=== PATIENT | female | born 1965 | race Caucasian/White ===

== ENCOUNTER 2017-07-24 11:38 | Emergency (ER) | payer MEDICARE, SELFPAY ==
[2017-07-24 11:39] VITALS: BP 133/88; PULSE 95; RESP 24; TEMP 36.1; O2SAT 96; BMI 40.0
--- NOTE | 2017-07-24 12:00 | ED.DCSUM_ITS ---
- ER Visit Summary Date of Service: 07/24/17 Chief Complaint: [Left leg pain] History of Present Illness: The patient is a 51 F [presents to the emergency department with pain in her left lower back, buttock, and left leg. Patient describes pain radiating from lower back down the back of the leg to the foot. Patient describes some paresthesias to the anterior thigh. Patient states that she has had similar pain multiple times in the past and has seen Dr. Kiran Her for this. Patient has had injections for this with prednisone. Patient denies any trauma. States she woke up with the discomfort. Patient denies weakness in the leg or change in bowel or bladder function.] Physical Examination: [HEENT-PERRLA, EOMI. Cranial nerves II through XII grossly intact. TMs clear. Mucous membranes moist. No adenopathy. Cardiovascular-regular rate and rhythm without murmur or ectopy Lungs-clear to auscultation, chest wall stable without crepitus or subcu emphysema Abdomen-normoactive bowel sounds, soft, nontender, no rebound or rigidity, no peritoneal signs. Back exam-patient has some mild tenderness over the left lower lumbar spine and left buttock specifically over the piriformis. Patient has pain with straight leg raising about 30? while lying supine. Deep tendon reflexes are plus 2 out of 4 bilaterally at the patella and Achilles. Patient has normal L5 extension. Patient has normal sensation to light touch. Extremities-intact ?4, normal range of motion, normal pulses, atraumatic] Test Results: [None indicated]. At this point there is no evidence of cauda equina. And without any evidence of trauma or history of trauma I do not feel any type of imaging is indicated. Emergency Department Course and Treatment: [Patient was medicated with 1 mg of Dilaudid IM as well as prednisone 40 g p.o.] Treatment Plan: [Be given a prescription for [place] and prednisone as well as Flexeril.] Disposition: [Discharged to home in stable condition. Patient advised to follow -up Dr. Her within next 5-7 days. Patient to return if worsening pain, weakness in extremity, change in bowel or bladder function, or condition should worsen in any way.] Impression: [Sciatica] This note was generated with [employer] software. It may contain incorrect words, spelling, and punctuation that were not noted in review of the chart prior to signing ED Disposition - Plan for ED Patient: Chief Complaint: Lower Extremity Injury Referrals: Brooklyn Ramsey DO [Primary Care Provider] -
--- NOTE | 2017-07-24 12:00 | ED.DEP ---
ED Disposition - Plan for ED Patient: Chief Complaint: Lower Extremity Injury Instructions: ED Sciatica Prescriptions: Hydrocodone Bitart/Apap 5-325 [[place] 5/325] 1 - 2 tab PO Q4H PRN PRN #20 tab PRN Reason: Pain Prednisone [Deltasone] 20 mg PO BID #10 tab Cyclobenzaprine [Flexeril] 10 mg PO TID PRN #20 tab PRN Reason: Muscle Spasm Referrals: Brooklyn Ramsey DO [Primary Care Provider] - 5-7 Days Kiran Her MD [STAFF PHYSICIAN] - 5-7 Days
[2017-07-24] MEDS: HYDROmorphone 1 MG/ML Syringe IM (12:09)
[2017-07-24 12:29] VITALS: BP 124/79; PULSE 85; RESP 17; O2SAT 94
== END 2017-07-24 12:29 | disposition home or self-care (01) ==
PROVIDERS: Emergency Provider Emergency Medicine
DX: M54.32 Sciatica, left side (principal); E11.9 Type 2 diabetes mellitus without complications; E78.00 Pure hypercholesterolemia, unspecified; J44.9 Chronic obstructive pulmonary disease, unspecified; Z72.0 Tobacco use
CPT/HCPCS: 96372; 99283

== ENCOUNTER 2018-04-17 01:17 | Observation (INO) | payer MEDICARE, SELFPAY ==
[2018-04-17] VITALS (16 sets, daily range): BP systolic 104–131; BP diastolic 59–91; PULSE 91–115; RESP 12–26; TEMP 36.3–37; O2SAT 91–97; BMI 40.8; BMI 40.7
[2018-04-17 01:00] LABS: Absolute Neutrophil Count 5.1 X10^3/uL (2.0-7.7); Differential Indicated SCAN CRITERIA MET; Hematocrit 43.4 % (37-47); Hemoglobin 14.5 g/dl (12.0-15.0); Mean Corp Hgb Conc 33.4 g/gl (32-36); Mean Corpuscular Hgb 32.4 pg (27.0-32.0); Mean Corpuscular Volume 97.1 fL (81-99); Neutrophil % 45.3 % (47-70); Platelet Count 274 K/mm3 (150-450); RBC Distribution Width CV 12.9 % (11.6-14.6); Red Blood Count 4.47 M/mm3 (4.2-5.4); White Blood Count 11.3 K/mm3 (4.4-11.0)
[2018-04-17] MEDS: Albuterol 2.5 MG/3 ML VIAL.NEB. INHALATION ×3 (01:10→01:30)
[2018-04-17 01:13] LABS: Anion Gap 7 (5-15); BUN 7 mg/dL (7-18); BUN/Creat Ratio 9.5 RATIO (10-20); Calcium,Total 8.6 mg/dL (8.5-10.1); Chloride 106 mmol/L (98-107); Creatinine, Serum 0.74 mg/dL (0.55-1.02); EST Glomerular Filtration Rate 88 mL/min (>60); Est Glom Filt Rate - Afr Amer 106 mL/min (>60); Estimated Creatinine Clearance 63.88 ml/min; Glucose 136 mg/dL (74-106); Potassium 3.6 mmol/L (3.5-5.1); Sodium Level 141 mmol/L (136-145)
[2018-04-17] MEDS: Ipratropium/Albuterol Sulfate 3 ML AMPUL.NEB INHALATION ×5 (01:15→19:45)
--- NOTE | 2018-04-17 01:18 | EKG12_ITS ---
Test Reason : SOB Blood Pressure : / mmHG Vent. Rate : 091 BPM Atrial Rate : 091 BPM P-R Int : 160 ms QRS Dur : 092 ms QT Int : 372 ms P-R-T Axes : 062 061 069 degrees QTc Int : 457 ms Normal sinus rhythm Normal ECG Confirmed by NIURKA CAVAZOS, AMARA ([id number]), supervising film or videotape editor BRADNIE LEONARD ([id number]) on 04/18/2018 3:49:22 PM Referred By: DR LOREDO Confirmed By:AMARA BAH MD
--- NOTE | 2018-04-17 01:26 | ED.DCSUM_ITS ---
- ER Visit Summary Date of Service: 04/17/18 Chief Complaint: Cough, shortness of breath History of Present Illness: The patient is a 52 F with history of COPD who still smokes presents to the emergency department cough and shortness of breath. Patient said the symptoms for the past 4 days. She states that she had a pain in her left shoulder especially with coughing. Over the past 2 days, has begun to involve the left side of her chest. She is also been short of breath. She is been using her inhaler with relief. She has had a productive sputum. She denies any pain at rest. She denies any exertional dyspnea. She had no leg swelling. She has no history of pulmonary embolus. She did not think she had fever, but does admit to chills. The patient states that she does get recurrent bronchitis and this feels the same. Physical Examination: Vital signs reviewed General: Well-nourished, well-developed Head: Normocephalic, atraumatic Eyes: Pupils equal and reactive, extraocular muscles intact Neck, supple, no lymphadenopathy Heart: Regular rate and rhythm Respiratory: No distress, diffuse wheezing throughout with prolonged expiration diminished air exchange, tenderness over the left lateral chest with palpation Abdomen: Soft, nontender, nondistended, no peritoneal signs Back: Nontender Extremities: Nontender, no edema, no cords Skin: Normal color no rash Neuro: Alert and oriented, no focal or lateralizing deficits Test Results: [] Emergency Department Course and Treatment: The patient presents to the emergency department shortness of breath. IV was established. She was treated with fluids, Solu-Medrol, nebulized breathing treatments. After breathing treatments, she did have hypoxia and was requiring supplemental oxygen. Her x- ray shows atelectasis in the right base, but no focal infiltrate. EKG was sinus rhythm without acute ischemic change. Screening labs do demonstrate a mild leukocytosis but otherwise unremarkable. Her cardiac enzymes are normal. Patient was observed in the emergency department for 2 hours. We did ambulate her without supplemental oxygen. Her pulse ox did drop into the mid 80s. At this time, I do feel that she is going to require admission given her hypoxia and persistent bronchospasm. She is covered with azithromycin. The patient was discussed with the hospitalist who agrees with plan of care. Treatment Plan: [] Disposition: Admission Impression: 1. COPD exacerbation with hypoxia This note was generated with Dragon dictation software. It may contain incorrect words, spelling, and punctuation that were not noted in review of the chart prior to signing ED Disposition - Plan for ED Patient: Chief Complaint: Shortness of Breath Referrals: Brooklyn Ramsey DO [NON-STAFF] -
[2018-04-17] MEDS: 0.9% Normal Saline 1,000 ML 150 ML IV (01:40)
[2018-04-17] MEDS: HYDROcodone Bitartrate/Apap 5/325 Tablet PO (01:40)
[2018-04-17] MEDS: MethylPREDNISolone 125 MG/2 ML Vial IV (01:41)
--- NOTE | 2018-04-17 01:50 | RAD_ITS ---
STUDY: X-RAY CHEST REASON FOR EXAM: Female, 52 years old. Cough TECHNIQUE: Frontal and lateral views of the chest. COMPARISON: 03/04/2015 FINDINGS: Right basilar atelectasis. There is no demonstrated pleural abnormality. Normal size heart. Normal mediastinum and jorge. Normal visualized pulmonary arteries. Normal visualized aortic arch and descending thoracic aorta. Normal visualized thoracic spine. Normal visualized ribs, clavicles, and shoulders. Cholecystectomy clips. RAD/Chest PA and Lateral IMPRESSION: Right basilar atelectasis. Electronically Signed: Enmanuel Amezcua MD at 1:11 EDT Tel , Service support ,
--- NOTE | 2018-04-17 03:18 | PCM.HP.STD ---
Problem List (1) Acute exacerbation of COPD with asthma Status: Acute History of Present Illness Date of Admission: 04/17/18 Chief Complaint: shortness of breath The patient is a 52 year old F with a significant history of depression; schizophrenia; COPD and asthma who presents with 1 day of progressively worsening shortness of breath. Her shortness of breath is present at rest; and it increases with exertion. Associated with her symptoms is nonproductive cough; wheezing and orthopnea. Patient reports trying her home inhalers without any real relief. Patient reports pain under the left side of her breast, extending to her back. She rates this pain as 8/10. She is unable to provide the quality of the pain. At the emergency department patient was noted to have decrease oxygen saturation after receiving breathing treatments. Further she was ambulated and she was found to have oxygen saturation of 84% on room air. Subsequently a decision was made to admit patient. Past Medical History Medical History: Medical History (Last Updated 04/17/18 @ 03:32 by Reymundo Wynn MD) Asthma J45.909 COPD (chronic obstructive pulmonary disease) J44.9 Allergies simvastatin Adverse Reaction (Mild, Verified 04/17/18 01:21 EDT) Other MUSCLES IN LEGS HURTS meloxicam Adverse Reaction (Verified 04/17/18 01:21 EDT) Chest tightness morphine Adverse Reaction (Verified 04/17/18 01:21 EDT) Other Home Medications: Ambulatory Orders Medication Instructions Recorded Benztropine [Cogentin] 1 mg PO QHS 04/27/16 Escitalopram Oxalate [Lexapro] 20 mg PO DAILY 04/27/16 Perphenazine 8 mg PO QHS 04/27/16 Albuterol IH (ProAir) [Proair Hfa] 2 puff INHALATION PRN PRN 10/07/16 Atorvastatin Calcium [Lipitor] 20 mg PO QHS 10/07/16 Aspirin [Aspirin, Baby] 81 mg PO DAILY@0800 04/17/18 Loratadine 10 mg PO DAILY 04/17/18 Melatonin 3 mg PO QHS 04/17/18 Montelukast [Singulair] 10 mg PO DAILY 04/17/18 Omeprazole 20 mg PO DAILY 04/17/18 Perphenazine 2 mg PO DAILY 04/17/18 Surgical History: cholecystectomy, hysterectomy Psychiatric History: Depression, Schizophrenia Lives: Spouse/ Significant Other Smoking Status: Current every day smoker Tobacco Use: Cigarettes Alcohol: None - *Family History Maternal History Items: Diabetes Paternal History Items: COPD Review of Systems Constitutional: Denies: Chills, Fever, Weight Change HEENT: Denies: Head Aches, Sinus Congestion, Sinus Drainage Cardiovascular: Denies: Chest Pain, Palpitations Respiratory: Reports: Cough, Shortness of breath at rest, Shortness of breath upon exertion Gastrointestinal: Denies: Abdominal Pain, Nausea, Vomiting Genitourinary: Denies: Dysuria Musculoskeletal: Denies: Joint Pain, Joint Tenderness Skin: Denies: Rash, Wounds Neurological: Denies: Numbness, Tingling, Focal weakness Psychiatric: Denies: Anxiety, Depression, Homicidal Ideations, Suicidal Ideations Hematologic/ Lymphatic: Denies: Easy Bruising, Easy Bleeding VTE Information - Inpt Only VTE Present on Admission: No VTE Mechan Device Prophylaxis: None VTE Pharm Prophylaxis ordered?: Yes Patient Problems: Active and Suspected Problems Acute exacerbation of COPD with asthma (Acute) - Physical Exam General: Alert, Oriented x3, Cooperative HEENT: Atraumatic, PERRLA, EOMI, Normocephalic Neck: Supple, No JVD, Negative Carotid Bruits Lungs: Diminished Cardiovascular: No murmurs, Tachycardic - Mild Abdomen: Bowel Sounds Present, Soft, Non Tender Extremities: No edema, Capillary Refill Less than 3 Seconds Skin: No breakdown, - - Bilateral eyelids with yellowish lesions Musculoskeletal: No Tenderness to Palpation of Joints or Extremities Neurological: Cranial nerves II-XII grossly intact Psych/Mental Status: Normal Affect, Appropriate Vital Signs Temp Pulse Resp BP Pulse Ox 97.7 F L 96 22 H 130/74 H 95 04/17/18 01:19 EDT 04/17/18 01:25 EST 04/17/18 01:25 EST 04/17/18 01:17 EST 04/17/18 01:17 EST Oxygen Flow Rate (L/min) 2 Oxygen Delivery Method Nasal Cannula Weight: 94.9 kg Body Mass Index (BMI) 40.8 Laboratory Tests Past 24 Hrs 04/17/18 04/17/18 01:40 EST 01:40 EST WBC Pending RBC Pending Hgb Pending Hct Pending MCV Pending MCH Pending MCHC Pending RDW Pending RDW Differential Pending Plt Count Pending Neut % (Auto) Pending Absolute Neuts (auto) Pending Total Counted Pending Sodium Pending Potassium Pending Chloride Pending Carbon Dioxide Pending Anion Gap Pending BUN Pending Creatinine Pending Est GFR (MDRD) Af Amer Pending Est GFR (MDRD) Non-Af Pending BUN/Creatinine Ratio Pending Glucose Pending Calcium Pending Troponin I Pending Assessment/Plan All Active Problems Acute exacerbation of COPD with asthma (Acute) The patient is a 52 year old F with a significant history of depression; schizophrenia; COPD and asthma who presents with progressively worsening shortness of breath; cough; wheezing; orthopnea and found to be hypoxic after breathing treatment and upon ambulation consistent with acute exacerbation of COPD. Acute COPD exacerbation of asthma Patient received Solu-Medrol 125 mg at emergency department; Solu-Medrol continued. Patient received DuoNeb in the emergency department. Scheduled DuoNeb and albuterol as needed ordered. Patient received azithromycin at emergency department. Azithromycin IV continued. Smoking cessation was discussed. IS and acapella ordered. On patient profile is diabetes mellitus.Patient denies being diabetic. In the setting of starting steroids will check Accu-Chek q. before meals at bedtime. Schizophrenia Benztropine and perphenazine continued Depression Lexapro continued DVT prophylaxis subcutaneous Lovenox. Code Visit OBSV E&M: 29218 Initial observation care L3
[2018-04-17 04:31] LABS: Bedside Glucose 378 mg/dL (70-110)
[2018-04-17] MEDS: Insulin Lispro 100 UNIT/ML INSULN.PEN SC ×4 (06:14→22:23)
[2018-04-17 07:55] LABS: Hemoglobin A1c 6.5 % (4.2-6.3)
[2018-04-17] MEDS: Aspirin 81 MG TAB.CHEW PO (08:57)
--- NOTE | 2018-04-17 09:54 | PCM.PN.HOSP ---
Patient Problems: Active and Suspected Problems (Last Updated 04/17/18 @ 03:32 by Reymundo Wynn MD) Acute exacerbation of COPD with asthma (Acute) Subjective: Patient seen and examined. She feels slightly better. Remains on 2L oxygen. On breathing treatments Vitals/I&O's: Vital Signs Temp Pulse Resp BP Pulse Ox 97.5 F L 102 H 16 126/79 H 93 04/17/18 06:10 04/17/18 07:55 04/17/18 07:55 04/17/18 06:10 04/17/18 07:55 Oxygen Flow Rate (L/min) 3 Oxygen Delivery Method Nasal Cannula Weight: 94.6 kg Body Mass Index (BMI) 40.7 Intake and Output for Last 24 Hours 04/15/18 04/16/18 04/17/18 23:59 23:59 22:59 Intake Total 677 / 677 Balance 677 / 677 General: Alert, Oriented x3, Cooperative, No apparent distress HEENT: Atraumatic, PERRLA, EOMI, Normocephalic Oral: Moist Mucosa Neck: Supple, No JVD, Negative Carotid Bruits Lungs: Normal air movement, Diminished Cardiovascular: Regular rate, Regular Rhythm, Normal S1, Normal S2, No murmurs Abdomen: Bowel Sounds Present, Soft, Non Tender, Non-Distended, No Hepato-splenomegaly Extremities: No edema Skin: No rashes, No breakdown Musculoskeletal: No Tenderness to Palpation of Joints or Extremities Lymphatic: No Cervical, Supraclavicular, or Inguinal Adenopathy Neurological: Cranial nerves II-XII grossly intact, Neuro grossly intact Psych/Mental Status: Normal Affect, Appropriate Laboratory Results 04/17/18 01:40 EST: WBC Pending, RBC Pending, Hgb Pending, Hct Pending, MCV Pending, MCH Pending, MCHC Pending, RDW Pending, RDW Differential Pending, Plt Count Pending, Neut % (Auto) Pending, Absolute Neuts (auto) Pending, Total Counted Pending 04/17/18 01:40 EST: Sodium Pending, Potassium Pending, Chloride Pending, Carbon Dioxide Pending, Anion Gap Pending, BUN Pending, Creatinine Pending, Est GFR (MDRD) Af Amer Pending, Est GFR (MDRD) Non-Af Pending, BUN/Creatinine Ratio Pending, Glucose Pending, Calcium Pending, Troponin I Pending 04/17/18 01:40 EST: Hemoglobin A1c 6.5 H 04/17/18 04:22: POC Glucose 378 H Current Medications Acetaminophen (Tylenol) 650 mg PO Q6H PRN PRN PRN Reason: Mild Pain (scale 0-3)/T>100.7 Albuterol Sulfate (Ventolin Aerosols) 2.5 mg INHALATION Q2H PRN PRN PRN Reason: SHORTNESS OF BREATH Albuterol/Ipratropium (Duoneb) 3 ml INHALATION Q4H.RT [facility] Last Admin: 04/17/18 07:55 Dose: 3 ml Aspirin (Aspirin, Baby) 81 mg PO DAILY@0800 [facility] Last Admin: 04/17/18 08:57 Dose: 81 mg Atorvastatin Calcium (Lipitor) 20 mg PO QHS [facility] Benztropine Mesylate (Cogentin) 1 mg PO QHS [facility] Bisacodyl (Dulcolax) 5 mg PO DAILY PRN PRN PRN Reason: Constipation Enoxaparin Sodium (Lovenox) 40 mg SC DAILY@1000 [facility] Escitalopram Oxalate (Lexapro) 20 mg PO DAILY [facility] Guaifenesin (Mucinex) 1,200 mg PO BID [facility] Azithromycin 500 mg/ Dextrose 255 mls @ 250 mls/hr IV Q24@2200 [facility] Stop: 04/19/18 23:02 Insulin Glargine (Lantus (Bkc)) 10 units SC QHS [facility]; Protocol Insulin Human Lispro (Humalog Kwikpen (Bk)) 0 unit SC ACHS & 3AM [facility]; Protocol Last Admin: 04/17/18 06:14 Dose: 10 units Loratadine (Claritin) 10 mg PO DAILY [facility] Magnesium Hydroxide (Milk Of Magnesia) 30 ml PO DAILY PRN PRN PRN Reason: Constipation Melatonin (Melatonin) 3 mg PO QHS [facility] Methylprednisolone (Solu-Medrol) 40 mg IV Q8 [facility] Stop: 04/18/18 06:01 Last Admin: 04/17/18 06:14 Dose: 40 mg Montelukast Sodium (Singulair) 10 mg PO DAILY [facility] Nicotine (Nicoderm Cq (Pbkc)) 21 mg TRANSDERM. DAILY [facility] Last Admin: 04/17/18 06:15 Dose: 21 mg Ondansetron HCl (Zofran) 4 mg IV Q8H PRN PRN PRN Reason: Nausea Oxycodone HCl (Oxyir) 5 mg PO Q4H PRN PRN PRN Reason: Moderate Pain (pain scale 4-5) Pantoprazole Sodium (Protonix) 20 mg PO DAILY [facility] Perphenazine (Perphenazine) 2 mg PO DAILY [facility] Perphenazine (Perphenazine) 8 mg PO QHS [facility] Sodium Chloride () 5 - 30 ml IV UD PRN PRN Reason: SALINE FLUSH Zolpidem Tartrate (Ambien (Generic)) 5 mg PO QHS PRN PRN PRN Reason: INSOMNIA Medical Necessity - Tobacco Use Smoking Status: Current every day smoker Tobacco Use: Cigarettes Assessment/Plan All Active Problems (Last Updated 04/17/18 @ 03:32 by Reymundo Wynn MD) Acute exacerbation of COPD with asthma (Acute) 52 y/o female with PMHx of schizoaffective disorder, asthma/COPD admitted with progressive SOB and is being managed as acute COPD exacerbation. 1. Acute respiratory insufficiency secondary to Acute COPD exacerbation, continue on IV steroids, breathing treatments, encourage incentive spirometer 2. Acute COPD exacerbation, continue with breathing treatments, on IV steroids, Azithromycin. 3. Schizoaffective disorder, on Lexapro 4. Type 2 DM, HbA1c 6.5, started on Lantus, continue with accuchecks and ISS, may need to be started on metformin 5. Hyperlipidemia, on statin 6. Nicotine dependency, on nictone replacement 7. DVT Ppx- Lovenox SC Code Visit Inpatient E&M: 80241 Subs Hosp L2
--- NOTE | 2018-04-17 10:02 | PN_ITS ---
Patient Problems: Active and Suspected Problems (Last Updated 04/17/18 @ 03:32 by Reymundo Wynn MD) Acute exacerbation of COPD with asthma (Acute) Subjective: Patient seen and examined. She feels slightly better. Remains on 2L oxygen. On breathing treatments Vitals/I&O's: Vital Signs Temp Pulse Resp BP Pulse Ox 97.5 F L 102 H 16 126/79 H 93 04/17/18 06:10 04/17/18 07:55 04/17/18 07:55 04/17/18 06:10 04/17/18 07:55 Oxygen Flow Rate (L/min) 3 Oxygen Delivery Method Nasal Cannula Weight: 94.6 kg Body Mass Index (BMI) 40.7 Intake and Output for Last 24 Hours 04/15/18 04/16/18 04/17/18 23:59 23:59 22:59 Intake Total 677 / 677 Balance 677 / 677 General: Alert, Oriented x3, Cooperative, No apparent distress HEENT: Atraumatic, PERRLA, EOMI, Normocephalic Oral: Moist Mucosa Neck: Supple, No JVD, Negative Carotid Bruits Lungs: Normal air movement, Diminished Cardiovascular: Regular rate, Regular Rhythm, Normal S1, Normal S2, No murmurs Abdomen: Bowel Sounds Present, Soft, Non Tender, Non-Distended, No Hepato- splenomegaly Extremities: No edema Skin: No rashes, No breakdown Musculoskeletal: No Tenderness to Palpation of Joints or Extremities Lymphatic: No Cervical, Supraclavicular, or Inguinal Adenopathy Neurological: Cranial nerves II-XII grossly intact, Neuro grossly intact Psych/Mental Status: Normal Affect, Appropriate Laboratory Results 04/17/18 01:40 EST: WBC Pending, RBC Pending, Hgb Pending, Hct Pending, MCV Pending, MCH Pending, MCHC Pending, RDW Pending, RDW Differential Pending, Plt Count Pending, Neut % (Auto) Pending, Absolute Neuts (auto) Pending, Total Counted Pending 04/17/18 01:40 EST: Sodium Pending, Potassium Pending, Chloride Pending, Carbon Dioxide Pending, Anion Gap Pending, BUN Pending, Creatinine Pending, Est GFR (MDRD) Af Amer Pending, Est GFR (MDRD) Non-Af Pending, BUN/Creatinine Ratio Pending, Glucose Pending, Calcium Pending, Troponin I Pending 04/17/18 01:40 EST: Hemoglobin A1c 6.5 H 04/17/18 04:22: POC Glucose 378 H Current Medications Acetaminophen (Tylenol) 650 mg PO Q6H PRN PRN PRN Reason: Mild Pain (scale 0-3)/T>100.7 Albuterol Sulfate (Ventolin Aerosols) 2.5 mg INHALATION Q2H PRN PRN PRN Reason: SHORTNESS OF BREATH Albuterol/Ipratropium (Duoneb) 3 ml INHALATION Q4H.RT [facility] Last Admin: 04/17/18 07:55 Dose: 3 ml Aspirin (Aspirin, Baby) 81 mg PO DAILY@0800 [facility] Last Admin: 04/17/18 08:57 Dose: 81 mg Atorvastatin Calcium (Lipitor) 20 mg PO QHS [facility] Benztropine Mesylate (Cogentin) 1 mg PO QHS [facility] Bisacodyl (Dulcolax) 5 mg PO DAILY PRN PRN PRN Reason: Constipation Enoxaparin Sodium (Lovenox) 40 mg SC DAILY@1000 [facility] Escitalopram Oxalate (Lexapro) 20 mg PO DAILY [facility] Guaifenesin (Mucinex) 1,200 mg PO BID [facility] Azithromycin 500 mg/ Dextrose 255 mls @ 250 mls/hr IV Q24@2200 [facility] Stop: 04/19/18 23:02 Insulin Glargine (Lantus (Bkc)) 10 units SC QHS [facility]; Protocol Insulin Human Lispro (Humalog Kwikpen (Bk)) 0 unit SC ACHS & 3AM [facility]; Protocol Last Admin: 04/17/18 06:14 Dose: 10 units Loratadine (Claritin) 10 mg PO DAILY [facility] Magnesium Hydroxide (Milk Of Magnesia) 30 ml PO DAILY PRN PRN PRN Reason: Constipation Melatonin (Melatonin) 3 mg PO QHS [facility] Methylprednisolone (Solu-Medrol) 40 mg IV Q8 [facility] Stop: 04/18/18 06:01 Last Admin: 04/17/18 06:14 Dose: 40 mg Montelukast Sodium (Singulair) 10 mg PO DAILY [facility] Nicotine (Nicoderm Cq (Pbkc)) 21 mg TRANSDERM. DAILY [facility] Last Admin: 04/17/18 06:15 Dose: 21 mg Ondansetron HCl (Zofran) 4 mg IV Q8H PRN PRN PRN Reason: Nausea Oxycodone HCl (Oxyir) 5 mg PO Q4H PRN PRN PRN Reason: Moderate Pain (pain scale 4-5) Pantoprazole Sodium (Protonix) 20 mg PO DAILY [facility] Perphenazine (Perphenazine) 2 mg PO DAILY [facility] Perphenazine (Perphenazine) 8 mg PO QHS [facility] Sodium Chloride () 5 - 30 ml IV UD PRN PRN Reason: SALINE FLUSH Zolpidem Tartrate (Ambien (Generic)) 5 mg PO QHS PRN PRN PRN Reason: INSOMNIA Medical Necessity - Tobacco Use Smoking Status: Current every day smoker Tobacco Use: Cigarettes Assessment/Plan All Active Problems (Last Updated 04/17/18 @ 03:32 by Reymundo Wynn MD) Acute exacerbation of COPD with asthma (Acute) 52 y/o female with PMHx of schizoaffective disorder, asthma/COPD admitted with progressive SOB and is being managed as acute COPD exacerbation. 1. Acute respiratory insufficiency secondary to Acute COPD exacerbation, continue on IV steroids, breathing treatments, encourage incentive spirometer 2. Acute COPD exacerbation, continue with breathing treatments, on IV steroids, Azithromycin. 3. Schizoaffective disorder, on Lexapro 4. Type 2 DM, HbA1c 6.5, started on Lantus, continue with accuchecks and ISS, may need to be started on metformin 5. Hyperlipidemia, on statin 6. Nicotine dependency, on nictone replacement 7. DVT Ppx- Lovenox SC Code Visit Inpatient E&M: 94739 Subs Hosp L2
[2018-04-17] MEDS: guaiFENesin 1,200 MG Tablet 1200 MG PO ×2 (11:27→22:25)
[2018-04-17] MEDS: Loratadine 10 MG Tablet PO (11:27)
[2018-04-17] MEDS: Escitalopram Oxalate 20 MG Tablet PO (11:27)
[2018-04-17] MEDS: Montelukast 10 MG Tablet PO (11:27)
[2018-04-17] MEDS: Pantoprazole Sodium 20 MG Tablet PO (11:27)
[2018-04-17 12:21] LABS: Bedside Glucose 314 mg/dL (70-110)
[2018-04-17] MEDS: 0.9% NaCl Peripheral Flush Adult/Peds IV (14:06)
[2018-04-17] MEDS: Enoxaparin 40 MG/0.4 ML Syringe SC (17:35)
[2018-04-17 17:41] LABS: Bedside Glucose 325 mg/dL (70-110)
[2018-04-17] MEDS: Benztropine 2 MG Tablet 1 MG PO (22:13)
[2018-04-17] MEDS: Atorvastatin Calcium 20 MG Tablet PO (22:24)
[2018-04-17 22:41] LABS: Bedside Glucose 322 mg/dL (70-110)
[2018-04-18] VITALS (7 sets, daily range): BP systolic 106–132; BP diastolic 49–77; PULSE 106–121; RESP 14–20; TEMP 36.3–36.7; O2SAT 91–96
[2018-04-18] MEDS: Insulin Lispro 100 UNIT/ML INSULN.PEN SC ×3 (03:07→11:09)
[2018-04-18 03:16] LABS: Bedside Glucose 277 mg/dL (70-110)
[2018-04-18 06:16] LABS: Bedside Glucose 259 mg/dL (70-110)
[2018-04-18 07:12] LABS: Absolute Lymphocyte Count 1.98 X10^3/ul (0.83-4.51); Absolute Neutrophil Count 26.2 X10^3/uL (2.0-7.7); Basophil# 0.01 X10^3/uL; Hematocrit 41.6 % (37-47); Hemoglobin 13.7 g/dl (12.0-15.0); Lymphocyte # 1.98 X10^3/ul (4.0); Lymphocyte % 6.8 % (19-41); Mean Corp Hgb Conc 32.9 g/gl (32-36); Mean Corpuscular Hgb 31.9 pg (27.0-32.0); Mean Platelet Vol. 10.1 fl (6.2-12.0); Monocyte# 0.95 X10^3/uL; Monocyte% 3.3 % (0-10); Neutrophil # 26.22 X10^3/uL (2.7-7.7); Neutrophil % 89.7 % (47-70); Platelet Count 303 K/mm3 (150-450); RBC Distribution Width CV 13.5 % (11.6-14.6); RBC Distribution Width SD 47.6 fl (35.1-43.9); Red Blood Count 4.29 M/mm3 (4.2-5.4); White Blood Count 29.2 K/mm3 (4.4-11.0)
[2018-04-18] MEDS: Ipratropium/Albuterol Sulfate 3 ML AMPUL.NEB INHALATION ×2 (07:20→10:34)
[2018-04-18 07:25] LABS: POSITIVE COUNT NO; POSITIVE DIFFERENTIAL YES; POSITIVE MORPHOLOGY NO
[2018-04-18 07:26] LABS: Differential Indicated SCAN CRITERIA MET
[2018-04-18] MEDS: Aspirin 81 MG TAB.CHEW PO (08:47)
[2018-04-18] MEDS: Loratadine 10 MG Tablet PO (10:48)
[2018-04-18] MEDS: Montelukast 10 MG Tablet PO (10:48)
[2018-04-18] MEDS: Escitalopram Oxalate 20 MG Tablet PO (10:48)
[2018-04-18] MEDS: Pantoprazole Sodium 20 MG Tablet PO (10:49)
[2018-04-18] MEDS: guaiFENesin 1,200 MG Tablet 1200 MG PO (10:51)
[2018-04-18] MEDS: Enoxaparin 40 MG/0.4 ML Syringe SC (10:51)
--- NOTE | 2018-04-18 11:33 | DCINST_ITS ---
- Discharge Diagnoses Current Active Problems: Current Active and Chronic Problems (Last Updated 04/17/18 @ 03:32 by Reymundo Wynn MD) Acute exacerbation of COPD with asthma (Acute) You will use the following diet at home:: Calorie/Carbohydrate Controlled (specify 1200, 1400, etc) - 1800 Your food should be the consistency of: Regular Discharge Activity: Return to Normal Activity Allergies/Adverse Reactions: Allergies simvastatin Adverse Reaction (Mild, Verified 04/17/18 01:21 EDT) Other MUSCLES IN LEGS HURTS meloxicam Adverse Reaction (Verified 04/17/18 01:21 EDT) Chest tightness morphine Adverse Reaction (Verified 04/17/18 01:21 EDT) Other Medications to take at Discharge Benztropine [Cogentin] 1 mg PO QHS 04/27/16 Escitalopram Oxalate [Lexapro] 20 mg PO DAILY 04/27/16 Perphenazine 8 mg PO QHS 04/27/16 Albuterol IH (ProAir) [Proair Hfa] 2 puff INHALATION PRN PRN 10/07/16 Atorvastatin Calcium [Lipitor] 20 mg PO QHS 10/07/16 Aspirin [Aspirin, Baby] 81 mg PO DAILY@0800 04/17/18 Loratadine 10 mg PO DAILY 04/17/18 Melatonin 3 mg PO QHS 04/17/18 Montelukast [Singulair] 10 mg PO DAILY 04/17/18 Omeprazole 20 mg PO DAILY 04/17/18 Perphenazine 2 mg PO DAILY 04/17/18 Azithromycin [Zithromax] 500 mg PO DAILY #3 tablet 04/18/18 Guaifenesin [Mucinex] 1,200 mg PO BID #14 tablet 04/18/18 Metformin HCl [Glucophage] 500 mg PO BIDCM #60 tablet 04/18/18 Prednisone 20 mg PO BID #10 tablet 04/18/18 The following prescriptions were given: Azithromycin [Zithromax] 500 mg PO DAILY #3 tablet Guaifenesin [Mucinex] 1,200 mg PO BID #14 tablet Metformin HCl [Glucophage] 500 mg PO BIDCM #60 tablet Prednisone 20 mg PO BID #10 tablet Primary Care Physician: Brooklyn Ramsey DO [NON-STAFF] - Please follow up with your Primary Care Physician in: in 3-5 days Test Results: Test results from this visit will be discussed in further detail at your follow- up appointment, if applicable. Proposed Discharge Date: 04/18/18
--- NOTE | 2018-04-18 11:33 | DS.PCM_ITS ---
Discharge Date and Diagnosis Date of Admission: 04/17/18 Date of Discharge: 04/18/18 - Primary Discharge Diagnosis Active and Suspected Problems (Last Updated 04/17/18 @ 03:32 by Reymundo Wynn MD) Acute exacerbation of COPD with asthma (Acute) Hospital Course and Treatment Summary of Care Provided: The patient is a 52 year old F with past medical history cigar for COPD, tobacco dependence who presented with progressive shortness of breath 1. COPD with acute exacerbation secondary to patient continues use of tobacco. Patient was admitted to regular nursing floor managed with systemic steroid, antibiotics, aerosol treatment in addition to supplemental oxygen. Patient was discharged 2 days after her admission in stable condition on prednisone as well as azithromycin 2. New onset diabetes mellitus type 2 patient was managed on Lantus during her hospital stay discharged on metformin as well as 1800 ADA diet and instructed to follow-up with the PCP for subsequent management 3. Tobacco dependence counseled on cessation, offered nicotine patch for tobacco cravings 4. Schizoaffective disorder 5. Dyslipidemia - Physical Exam General: Alert HEENT: Atraumatic Lungs: Diminished Cardiovascular: Regular rate Neurological: Neuro grossly intact Vital Signs Temp Pulse Resp BP Pulse Ox 97.9 F 115 H 20 H 111/53 L 92 04/18/18 08:03 04/18/18 08:03 04/18/18 08:03 04/18/18 08:03 04/18/18 08:03 Oxygen Flow Rate (L/min) 2 Oxygen Delivery Method Nasal Cannula Weight: 94.6 kg Body Mass Index (BMI) 40.7 Intake and Output for Last 24 Hours 04/17/18 04/17/18 04/18/18 00:59 23:59 23:59 Intake Total 969 / 969 Balance 969 / 969 Laboratory Tests Past 24 Hrs 04/18/18 06:15 WBC 29.2 H RBC 4.29 Hgb 13.7 Hct 41.6 MCV 97.0 MCH 31.9 MCHC 32.9 RDW 13.5 RDW Differential 47.6 H Plt Count 303 MPV 10.1 Immature Gran % (Auto) 0.200 Neut % (Auto) 89.7 H Lymph % (Auto) 6.8 L [place] % (Auto) 3.3 Eos % (Auto) 0.0 Baso % (Auto) 0.0 Absolute Neuts (auto) 26.2 H Absolute Lymphs (auto) 1.98 Total Counted Not Reportable Differential Comment COMMENT POC Glucose 04/18/18 04/18/18 04/17/18 06:08 03:01 22:21 POC Glucose 259 H 277 H 322 H 04/17/18 04/17/18 17:32 11:42 POC Glucose 325 H 314 H Discharge Diet: 1800 Calorie Control Diet Discharge Activity: Return to Normal Activity Home Medications: Medications to take at Discharge Benztropine [Cogentin] 1 mg PO QHS 04/27/16 Escitalopram Oxalate [Lexapro] 20 mg PO DAILY 04/27/16 Perphenazine 8 mg PO QHS 04/27/16 Albuterol IH (ProAir) [Proair Hfa] 2 puff INHALATION PRN PRN 10/07/16 Atorvastatin Calcium [Lipitor] 20 mg PO QHS 10/07/16 Aspirin [Aspirin, Baby] 81 mg PO DAILY@0800 04/17/18 Loratadine 10 mg PO DAILY 04/17/18 Melatonin 3 mg PO QHS 04/17/18 Montelukast [Singulair] 10 mg PO DAILY 04/17/18 Omeprazole 20 mg PO DAILY 04/17/18 Perphenazine 2 mg PO DAILY 04/17/18 Azithromycin [Zithromax] 500 mg PO DAILY #3 tablet 04/18/18 Guaifenesin [Mucinex] 1,200 mg PO BID #14 tablet 04/18/18 Metformin HCl [Glucophage] 500 mg PO BIDCM #60 tablet 04/18/18 Prednisone 20 mg PO BID #10 tablet 04/18/18 Following Prescrptions Were Given to Patient: Azithromycin [Zithromax] 500 mg PO DAILY #3 tablet Guaifenesin [Mucinex] 1,200 mg PO BID #14 tablet Metformin HCl [Glucophage] 500 mg PO BIDCM #60 tablet Prednisone 20 mg PO BID #10 tablet Primary Care Physician: Brooklyn Ramsey DO [NON-STAFF] - Please follow up with your Primary Care Physician in: in 3-5 days Disposition: Home Minutes spent on discharge:: 35 Patient Condition:: Stable Medical Necessity - Tobacco Use Smoking Status: Current every day smoker Tobacco Use: Cigarettes Meaningful Use Info Meaningful Use Diagnoses (Choose all that apply): None applicable Code Visit Inpatient E&M: 33139 Disch Hosp
--- NOTE | 2018-04-18 11:51 | PCA ---
MADE APT FOR PRIMARY CARE Wednesday AT 415PM.
[2018-04-18 12:05] LABS: Bedside Glucose 362 mg/dL (70-110)
== END 2018-04-18 12:35 | disposition home or self-care (01) ==
LOC: ED 01:39 → MS3 03:34
PROVIDERS: Internal Medicine; Admitting Provider Hospitalist; Emergency Provider Emergency Medicine; Family Provider Family Medicine; PCP Family Medicine; Visit Provider Internal Medicine
DX: J44.1 Chronic obstructive pulmonary disease with (acute) exacerbation (principal); F25.9 Schizoaffective disorder, unspecified; E11.9 Type 2 diabetes mellitus without complications; E78.5 Hyperlipidemia, unspecified; F17.210 Nicotine dependence, cigarettes, uncomplicated; Z79.899 Other long term (current) drug therapy; Z79.82 Long term (current) use of aspirin; F32.9 Major depressive disorder, single episode, unspecified
CPT/HCPCS: 36415; 71046; 80048; 82962; 83036; 84484; 85025; 93005; 94640; 94667; 94668; 96361; 96365; 96366; 96372; 96375; 96376; 99218; 99251; 99283; 99406; J7030; A4216; G0378; G0463

== ENCOUNTER 2018-06-23 23:24 | Emergency (ER) | payer MEDICARE, SELFPAY ==
[2018-06-23 23:24] VITALS: BP 127/64; PULSE 104; RESP 22; TEMP 35.5; O2SAT 96; BMI 40.6
--- NOTE | 2018-06-23 23:36 | ED.VISSUMM ---
- ER Visit Summary Date of Service: 06/23/18 Chief Complaint: Left lower rib pain History of Present Illness: The patient is a 52 F complaining of left rib pain an hour and a half ago. She was straining to have a bowel movement and felt a pop in her left side of her ribs. No home treatment. Hurts to twist push on it and brief. She is never had this happen before. Physical Examination: [] Vital signs reviewed General: Well-nourished well-developed Head: Normocephalic atraumatic Eyes: Pupils equal round and reactive to light extraocular movements intact ENT: TMs clear no hemotympanum no trauma Neck: Nontender full range of motion Cardiovascular: Regular rate rhythm no murmurs normal S1-S2 Respiratory: No distress clear to auscultation bilaterally chest nontender Abdomen: Soft. Isolated tenderness to the left lateral mid ribs. No swelling or deformity or bony step-off or crepitus nondistended normal bowel sounds no masses Back: Nontender no CVA tenderness Extremities: Nontender active range of motion ?4 extremities no trauma Skin: Normal color no trauma Neuro alert oriented cranial nerves II through XII intact normal strength sensation reflexes Test Results: [] Emergency Department Course and Treatment: [] Patient given injection of Dilaudid for her pain. She will be given a short course of [place] for home. At this time I think she has a rib subluxation or an intercostal muscle strain from straining. I do not think she needs lab work or imaging. Treatment Plan: [] Disposition: [] Impression: [] Left rib subluxation This note was generated with [employer] dictation software. It may contain incorrect words, spelling, and punctuation that were not noted in review of the chart prior to signing ED Disposition - Plan for ED Patient: Chief Complaint: Chest Other Referrals: Dirk Baez MD [Primary Care Provider] -
--- NOTE | 2018-06-23 23:38 | ED.DEP ---
ED Disposition - Plan for ED Patient: Disposition: Home or Assisted Living Chief Complaint: Chest Other Instructions: ED Contusion Vs Minor Fx Rib Prescriptions: Hydrocodone Bitart/Apap 5-325 [[place] 5MG-325MG] 1 - 4 tab PO Q6H PRN PRN 2 Days #10 tab PRN Reason: Pain Referrals: Dirk Baez MD [Primary Care Provider] -
[2018-06-23] MEDS: HYDROmorphone 1 MG/ML Syringe IM (23:44)
[2018-06-24 00:05] VITALS: RESP 16
== END 2018-06-24 00:06 | disposition home or self-care (01) ==
PROVIDERS: Emergency Provider Emergency Medicine; Family Provider Family Medicine; PCP Family Medicine
DX: S23.29XA Dislocation of other parts of thorax, initial encounter (principal); X50.9XXA Other and unspecified overexertion or strenuous movements or postures, initial encounter; Y93.89 Activity, other specified; Y92.002 Bathroom of unspecified non-institutional (private) residence as the place of occurrence of the external cause; Y99.9 Unspecified external cause status; E66.9 Obesity, unspecified; J44.9 Chronic obstructive pulmonary disease, unspecified; E11.9 Type 2 diabetes mellitus without complications; Z72.0 Tobacco use
CPT/HCPCS: 96372; 99282

== ENCOUNTER 2019-01-15 18:49 | Observation (INO) | payer MEDICARE, SELFPAY ==
[2019-01-15 18:50] VITALS: BP 141/80; PULSE 100; RESP 18; TEMP 36.4; O2SAT 95; BMI 34.3
[2019-01-15 19:03] VITALS: BP 121/80; PULSE 99; RESP 17; O2SAT 94
--- NOTE | 2019-01-15 19:11 | EKG12_ITS ---
Test Reason : CP Blood Pressure : / mmHG Vent. Rate : 099 BPM Atrial Rate : 099 BPM P-R Int : 164 ms QRS Dur : 098 ms QT Int : 356 ms P-R-T Axes : 060 062 044 degrees QTc Int : 456 ms Normal sinus rhythm Normal ECG Confirmed by MOSES CAVAZOS, ALEKSANDRA ([id number]), development editor CESAR CASTRO ([id number]) on 01/18/2019 10:20:20 AM Referred By: Dianna Cheng Confirmed By:ALEKSANDRA LOPES MD
--- NOTE | 2019-01-15 19:11 | RAD_ITS ---
STUDY: X-RAY CHEST REASON FOR EXAM: Female, 53 years old. Left chest pain, shortness of breath TECHNIQUE: Single AP portable view of the chest. COMPARISON: Prior study of 04/17/2018 FINDINGS: sales engagement executive leads are present. The lungs are clear and expanded. There is no demonstrated pleural abnormality. Normal size heart. Normal mediastinum and jorge. Normal visualized pulmonary arteries. There are calcified plaques of the aortic arch. Normal visualized thoracic spine. Normal visualized ribs, clavicles, and shoulders. There is no demonstrated abnormality of the visualized soft tissue structures of the upper abdomen. RAD/Chest 1 View (Portable) IMPRESSION: Calcified plaques of the aortic arch. No acute cardiopulmonary disease process is seen. Electronically Signed: Leonides Kilpatrick MD at 19:42 EDT , Service support ,
[2019-01-15 19:22] LABS: Absolute Lymphocyte Count 4.67 X10^3/uL (0.83-4.51); Absolute Neutrophil Count 5.5 X10^3/uL (2.0-7.7); Basophil# 0.09 X10^3/uL; Basophil% 0.8 % (0-1); Eosinophils% 2.6 % (0-5); Hematocrit 43.4 % (37-47); Hemoglobin 14.9 g/dL (12.0-15.0); Lymphocyte # 4.67 X10^3/ul (4.0); Lymphocyte % 41.1 % (19-41); Mean Corp Hgb Conc 34.3 g/dL (32-36); Mean Corpuscular Hgb 33.2 pg (27.0-32.0); Mean Corpuscular Volume 96.7 fL (81-99); Monocyte# 0.77 X10^3/uL; Monocyte% 6.8 % (0-10); NRBC Flagged by Analyzer 0 % (0-5); Neutrophil # 5.51 X10^3/uL (2.7-7.7); Neutrophil % 48.4 % (47-70); Platelet Count 265 K/mm3 (150-450); RBC Distribution Width CV 12.5 % (11.6-14.6); RBC Distribution Width SD 44.7 fl (35.1-43.9); Red Blood Count 4.49 M/mm3 (4.2-5.4); White Blood Count 11.4 K/mm3 (4.4-11.0)
[2019-01-15] MEDS: Aspirin 81 MG TAB.CHEW 324 MG PO (19:32)
[2019-01-15] MEDS: Ondansetron 4 MG/2 ML Vial IV (19:32)
[2019-01-15] MEDS: fentaNYL 100 MCG/2 ML Ampul 50 MCG IV (19:32)
[2019-01-15 19:36] LABS: Anion Gap 4 (5-15); BUN 9 mg/dL (7-18); BUN/Creat Ratio 10.5 RATIO (10-20); Calcium,Total 8.8 mg/dL (8.5-10.1); Chloride 109 mmol/L (98-107); Creatinine, Serum 0.86 mg/dL (0.55-1.02); EST Glomerular Filtration Rate 74 mL/min (>60); Est Glom Filt Rate - Afr Amer 89 mL/min (>60); Estimated Creatinine Clearance 65.33 ml/min; Glucose 116 mg/dL (74-106); Potassium 3.7 mmol/L (3.5-5.1); Sodium Level 141 mmol/L (136-145)
--- NOTE | 2019-01-15 20:03 | ED.DCSUM_ITS ---
- ER Visit Summary Date of Service: 01/15/19 Chief Complaint: Chest pain History of Present Illness: The patient is a 53 F with chest pain for 3 to 4 days. Worse with exertion. It starts in her arm and left chest. Better with aspirin. Associated with shortness of breath and sweats. She has some paresth esias in her left fingertips. No history of heart disease, PE, or aortic disease. She does have a history of smoking, hyperlipidemia, and diabetes. Physical Examination: Afebrile and vital signs unremarkable. Alert and oriented. No acute distress. Heart regular peer lungs clear. Abdomen soft. Extremities soft and nontender. Strong equal pulses. Skin appears normal. Test Results: EKG showed sinus rhythm at a rate of 99. White count 11.4. CBC otherwise normal. Chloride 109, anion gap 4, glucose 116. Troponin normal. Chest x-ray showed calcified plaques of the aortic arch. Emergency Department Course and Treatment: Patient was placed on a monitor. Treated with aspirin, Zofran, and fentanyl while awaiting results. Patient has multiple risk factors given her age, diabetes, hyperlipidemia, smoking. Takes aspirin daily. She will need observation for chest pain. Hospitalist was contacted for further care. Treatment Plan: As above Disposition: Admission Impression: 1. Chest pain This note was generated with [employer] dictation software. It may contain incorrect words, spelling, and punctuation that were not noted in review of the chart prior to signing ED Disposition - Plan for ED Patient: Referrals: Dirk Baez MD [Primary Care Provider] -
[2019-01-15 21:05] VITALS: PULSE 83
--- NOTE | 2019-01-15 21:20 | EKG12_ITS ---
Test Reason : AM EKG Blood Pressure : / mmHG Vent. Rate : 084 BPM Atrial Rate : 084 BPM P-R Int : 178 ms QRS Dur : 100 ms QT Int : 384 ms P-R-T Axes : 051 051 056 degrees QTc Int : 453 ms Normal sinus rhythm Normal ECG Confirmed by MOSES CAVAZOS, ALEKSANDRA ([id number]), newspaper editor CESAR CASTRO ([id number]) on 01/18/2019 2:22:48 PM Referred By: Dianna Cheng Confirmed By:ALEKSANDRA LOPES MD
--- NOTE | 2019-01-15 21:42 | PCM.HP.STD ---
Problem List (1) Chest pain Status: Acute History of Present Illness Date of Admission: 01/15/19 Chief Complaint: chest pain The patient is a 53 year old F with a history of COPD and type 2 diabetes. Presented to the hospital with 3 days history of left-sided chest pain. No precipitating, aggravating or relieving factors. Pain is constant not related to movements. No Preceding trauma. denies any shortness of breath more than her usual COPD dyspnea. Any fever or chills. [] Past Medical History Medical History: Medical History (Last Updated 04/17/18 @ 03:32 by Reymundo Wynn MD) Asthma J45.909 COPD (chronic obstructive pulmonary disease) J44.9 Allergies simvastatin Adverse Reaction (Mild, Verified 01/15/19 18:53) Other MUSCLES IN LEGS HURTS meloxicam Adverse Reaction (Verified 01/15/19 18:53) Chest tightness morphine Adverse Reaction (Verified 01/15/19 18:53) Other trazodone Adverse Reaction (Verified 01/15/19 18:53) Vomiting Home Medications: Ambulatory Orders Medication Instructions Recorded Benztropine [Cogentin] 2 mg PO BID PRN 04/27/16 Escitalopram Oxalate [Lexapro] 20 mg PO DAILY 04/27/16 Perphenazine 8 mg PO QHS 04/27/16 Albuterol IH (ProAir) [Proair Hfa] 2 puff INHALATION PRN PRN 10/07/16 Atorvastatin Calcium [Lipitor] 20 mg PO QHS 10/07/16 Aspirin [Aspirin, Baby] 81 mg PO DAILY@0800 04/17/18 Loratadine 10 mg PO DAILY 04/17/18 Melatonin 6 mg PO QHS 04/17/18 Montelukast [Singulair] 10 mg PO DAILY 04/17/18 Omeprazole 20 mg PO DAILY 04/17/18 Perphenazine 2 mg PO DAILY 04/17/18 metFORMIN HCl [Glucophage] 500 mg PO BIDCM #60 tablet 04/18/18 Surgical History: cholecystectomy, hysterectomy Psychiatric History: Depression, Schizophrenia Smoking Status: Current every day smoker - *Family History Maternal History Items: Diabetes Paternal History Items: COPD Review of Systems Constitutional: Denies: Anorexia, Chills, Fever, Malaise Respiratory: Denies: Cough Comment: all Other systems reviewed and essentially negative. VTE Information - Inpt Only VTE Present on Admission: No VTE Mechan Device Prophylaxis: None VTE Pharm Prophylaxis ordered?: Yes Patient Problems: Active and Suspected Problems (Last Updated 04/17/18 @ 03:32 by Reymundo Wynn MD) Chest pain (Acute) - Physical Exam General: Alert, Oriented x3, Cooperative, No apparent distress HEENT: Atraumatic, PERRLA, EOMI, Normocephalic Oral: Moist Mucosa, No Gingival or Mucosal Lesions/ Ulcerations Neck: Supple, No JVD Lungs: Clear to auscultation, Normal air movement, No rhonchi Cardiovascular: Regular rate, Regular Rhythm, Normal S1, Normal S2 Abdomen: Bowel Sounds Present, Soft, Non Tender, Non-Distended Extremities: No clubbing, No cyanosis, No edema Skin: No rashes Musculoskeletal: No Tenderness to Palpation of Joints or Extremities Neurological: Cranial nerves II-XII grossly intact, Neuro grossly intact Psych/Mental Status: Normal Affect, Depressed Vital Signs Temp Pulse Resp BP Pulse Ox 97.5 F L 99 17 121/80 H 94 01/15/19 18:50 01/15/19 19:03 01/15/19 19:03 01/15/19 19:03 01/15/19 19:03 Oxygen Flow Rate (L/min) 2 Oxygen Delivery Method Nasal Cannula Weight: 90.718 kg Body Mass Index (BMI) 34.3 Laboratory Tests Past 24 Hrs 01/15/19 01/15/19 19:05 19:05 WBC 11.4 H RBC 4.49 Hgb 14.9 Hct 43.4 MCV 96.7 MCH 33.2 H MCHC 34.3 RDW Std Deviation 44.7 H RDW Coeff of Taryn 12.5 Plt Count 265 MPV 10.0 Immature Gran % (Auto) 0.300 Neut % (Auto) 48.4 Lymph % (Auto) 41.1 H [place] % (Auto) 6.8 Eos % (Auto) 2.6 Baso % (Auto) 0.8 Absolute Neuts (auto) 5.5 Absolute Lymphs (auto) 4.67 H Nucleated RBC % 0 Sodium 141 Potassium 3.7 Chloride 109 H Carbon Dioxide 28.0 Anion Gap 4 L BUN 9 Creatinine 0.86 Estim Creat Clear Calc 65.33 Est GFR (MDRD) Af Amer 89 Est GFR (MDRD) Non-Af 74 BUN/Creatinine Ratio 10.5 Glucose 116 H Calcium 8.8 Troponin I < 0.015 Assessment/Plan All Active Problems (Last Updated 04/17/18 @ 03:32 by Reymundo Wynn MD) Acute exacerbation of COPD with asthma (Acute) Chest pain (Acute) 1. Chest pain. Initial troponin and EKG were normal. We will continue to cycle. Order stress test for a.m. If normal then can be safely discharged. Pain control. 2. COPD. Stable and not in exacerbation. Her graph 3. Type 2 diabetes. Will continue with metformin. Code Visit OBSV E&M: 72769 Initial observation care L3
[2019-01-15 21:55] VITALS: BP 107/55; PULSE 70; RESP 18; TEMP 36.8; O2SAT 98
[2019-01-15 22:00] VITALS: BMI 61.8
[2019-01-15 22:05] VITALS: BMI 61.7
[2019-01-15] MEDS: Atorvastatin Calcium 20 MG Tablet PO (22:28)
[2019-01-15] MEDS: MELATONIN 3 MG TABLET 6 MG PO (22:28)
[2019-01-15 23:10] LABS: Bedside Glucose 111 mg/dL (70-110)
[2019-01-15 23:36] VITALS: O2SAT 98
[2019-01-16] VITALS (7 sets, daily range): BP systolic 103–110; BP diastolic 59–72; PULSE 82–97; RESP 16–18; TEMP 36.4–36.7; O2SAT 94–958
[2019-01-16] MEDS: Aspirin 81 MG TAB.CHEW PO (05:52)
[2019-01-16] MEDS: Loratadine 10 MG Tablet PO (05:52)
[2019-01-16] MEDS: Pantoprazole Sodium 20 MG Tablet PO (05:52)
[2019-01-16] MEDS: Montelukast 10 MG Tablet PO (05:52)
--- NOTE | 2019-01-16 05:55 | EKG12_ITS ---
Test Reason : CP ADMISSION Blood Pressure : / mmHG Vent. Rate : 081 BPM Atrial Rate : 081 BPM P-R Int : 196 ms QRS Dur : 096 ms QT Int : 390 ms P-R-T Axes : 051 057 061 degrees QTc Int : 453 ms Normal sinus rhythm Normal ECG Confirmed by MOSES CAVAZOS, ALEKSANDRA ([id number]), news editor CESAR CASTRO ([id number]) on 01/18/2019 2:24:43 PM Referred By: Dianna Cheng Confirmed By:ALEKSANDRA LOPES MD
[2019-01-16 06:36] LABS: Bedside Glucose 115 mg/dL (70-110)
[2019-01-16] MEDS: Escitalopram Oxalate 20 MG Tablet PO (09:51)
--- NOTE | 2019-01-16 10:16 | STRESSREP ---
Stress Test Report Date: 01-16-19 Procedure: Pharmacologic stress nuclear imaging study Indications: Chest pain Consent: Per the patient Procedure: The patient underwent pharmacologic (Regadenoson) evaluation with a peak heart rate of 106 beats per minute (63 %predicted maximal heart rate) and a peak blood pressure of 108/72 mmHg. The baseline ECG demonstrated normal sinus rhythm. The peak pharmacologic ECG demonstrated no obvious ECG changes. There were no cardiac dysrhythmias pretest, during pharmacologic infusion, or recovery. There was no complaint of chest discomfort during pharmacologic infusion or recovery. The examination was discontinued secondary to completion of protocol. Impression: 1. Pharmacologic (Regadenoson) evaluation 2. Peak pharmacologic ECG with no obvious ECG changes. 3. There were no cardiac dysrhythmias pretest, during pharmacologic infusion, or recovery. 4. Nuclear images pending Myocardial perfusion imaging study: Technique: The patient was injected with 12.0 millicuries of technetium 99m Cardiolite and subsequently rest SPECT Cardiolite nuclear imaging was obtained in the horizontal long, vertical long, and short axis views. The patient underwent pharmacologic (Regadenoson) evaluation with a peak heart rate of 106 beats per minute (63 % percent predicted maximal heart rate) and a peak blood pressure of 108/72 mmHg. The patient was injected with 36.0 millicuries of technetium 99m Cardiolite and subsequently stress SPECT Cardiolite nuclear imaging was obtained in the horizontal long, vertical long, and short axis views. A gated Cardiolite study at peak stress was obtained. Interpretation: Rest and stress SPECT Cardiolite nuclear imaging status post realignment and normalization (attenuation correction not performed) demonstrate areas of extra cardiac/gastrointestinal tracer uptake near the inferior segments and at rest and stress a small area of subtle diminished tracer uptake in the mid inferior segments without significant change. There is end systolic thickening and brightening. The gated Cardiolite study demonstrates myocardial thickening and inward wall motion. The reported LVEF is 74 %. Impression: 1. Rest and stress SPECT Cardiolite nuclear imaging demonstrate myocardial perfusion changes appearing compatible with the effects of soft tissue attenuation/artifact and/or gastrointestinal tracer uptake/detraction although a small area of previous myocardial injury/infarction following the mid inferior segment cannot necessarily be excluded. There are no myocardial perfusion changes considered diagnostic for associated stress-induced myocardial ischemia. 2. The gated Cardiolite study reports an LVEF of 74 %. This note was generated with Dragon dictation software. It may contain incorrect words, spelling, and punctuation that were not noted in checking the note before signing.
--- NOTE | 2019-01-16 11:11 | DCINST_ITS ---
- Discharge Diagnoses Current Active Problems: Current Active and Chronic Problems (Last Updated 04/17/18 @ 03:32 by Reymundo Wynn MD) Chest pain (Acute) You will use the following diet at home:: Calorie/Carbohydrate Controlled (specify 1200, 1400, etc), Cardiac, Other - With Reflux the foods you should avoid are chocolate, peppermints, Caffeine, TTUMS. You should also consider not smoking. Nicotine and the foods I mention all cause increased reflux. I think the chest pain is more likely than not due to reflux. Losing weight will also help decrease the amount of reflux. Do not lie down for at least 1-2 hours after eating. Your food should be the consistency of: Regular Your liquids should be the consistency of: Regular/Thin Discharge Activity: Return to Normal Activity Call your doctor if you observe: Fever of 101 or Higher, Dizziness, Prolonged hiccoughing, Calf discomfort, Uncontrolled pain Instructions: What Is GERD?, Lifestyle Changes for Controlling GERD, Medications for GERD, Tips for Quitting Smoking (Cardiovascular), Why Do You Smoke?, Planning to Quit Smoking, Getting Support for Quitting Smoking Additional Instructions: The respiratory therapists at the hospital have a smoking cessation program and all you have to do to get help to quit smoking is call the hospital at [phone] and ask for the smoking cessation coordinator. I am giving you a prescription for Omeprazole to take twice a day, morning and at bedtime. Pending Tests on Discharge: none Allergies/Adverse Reactions: Allergies simvastatin Adverse Reaction (Mild, Verified 01/15/19 18:53) Other MUSCLES IN LEGS HURTS meloxicam Adverse Reaction (Verified 01/15/19 18:53) Chest tightness morphine Adverse Reaction (Verified 01/15/19 18:53) Other trazodone Adverse Reaction (Verified 01/15/19 18:53) Vomiting Medications to take at Discharge Benztropine [Cogentin] 2 mg PO BID PRN 04/27/16 Escitalopram Oxalate [Lexapro] 20 mg PO DAILY 04/27/16 Perphenazine 8 mg PO QHS 04/27/16 Albuterol IH (ProAir) [Proair Hfa] 2 puff INHALATION PRN PRN 10/07/16 Atorvastatin Calcium [Lipitor] 20 mg PO QHS 10/07/16 Aspirin [Aspirin, Baby] 81 mg PO DAILY@0800 04/17/18 Loratadine 10 mg PO DAILY 04/17/18 Melatonin 6 mg PO QHS 04/17/18 Montelukast [Singulair] 10 mg PO DAILY 04/17/18 Perphenazine 2 mg PO DAILY 04/17/18 metFORMIN HCl [Glucophage] 500 mg PO BIDCM #60 tablet 04/18/18 Omeprazole 20 mg PO BID #60 capsule. 01/16/19 The following prescriptions were given: Omeprazole 20 mg PO BID #60 capsule. Prescription Printed Primary Care Physician: Dirk Baez MD [Primary Care Provider] - Please follow up with your Primary Care Physician in: 1-2 weeks Test Results: Test results from this visit will be discussed in further detail at your follow- up appointment, if applicable. Proposed Discharge Date: 01/16/19
[2019-01-16 11:51] LABS: Bedside Glucose 105 mg/dL (70-110)
--- NOTE | 2019-01-16 11:55 | PCM.DC.SUM ---
Discharge Date and Diagnosis - Problem List Patient Problems: Active and Suspected Problems (Last Updated 04/17/18 @ 03:32 by Reymundo Wynn MD) Non-cardiac chest pain (Acute) Date of Admission: 01/15/19 Date of Discharge: 01/16/19 - Primary Discharge Diagnosis Active and Suspected Problems (Last Updated 04/17/18 @ 03:32 by Reymundo Wynn MD) Non-cardiac chest pain (Acute)-more likely than not secondary to gastroesophageal reflux - Secondary Discharge Diagnosis Chronic Problems (Last Updated 04/17/18 @ 03:32 by Reymundo Wynn MD) Diabetes mellitus type 2 in obese (Chronic) Depression (Chronic) Hyperlipidemia (Chronic) Schizophrenia (Chronic) Tobacco dependence (Chronic) Morbid obesity (Chronic) GERD (gastroesophageal reflux disease) (Chronic) Hospital Course and Treatment Imaging Results: 01/16/19 05:55 Nuclear Stress Test - Chemical [NM] AM (NON MEDS) Laboratory Tests 01/16/19 01/16/19 01/16/19 Range/Units 11:39 05:57 01:05 WBC (4.4-11.0) K/mm3 RBC (4.2-5.4) M/mm3 Hgb (12.0-15.0) g/dL Hct (37-47) % MCV (81-99) fL MCH (27.0-32.0) pg MCHC (32-36) g/dL RDW Std Deviation (35.1-43.9) fl RDW Coeff of Taryn (11.6-14.6) % Plt Count (150-450) K/mm3 MPV (6.2-12.0) fl Immature Gran % (Auto) (0.0-0.9) % Neut % (Auto) (47-70) % Lymph % (Auto) (19-41) % [place] % (Auto) (0-10) % Eos % (Auto) (0-5) % Baso % (Auto) (0-1) % Absolute Neuts (auto) (2.0-7.7) X10^3/uL Absolute Lymphs (auto) (0.83-4.51) X10^3/uL Nucleated RBC % (0-5) % Sodium (136-145) mmol/L Potassium (3.5-5.1) mmol/L Chloride (98-107) mmol/L Carbon Dioxide (21.0-32.0) mmol/L Anion Gap (5-15) BUN (7-18) mg/dL Creatinine (0.55-1.02) mg/dL Estim Creat Clear Calc ml/min Est GFR (MDRD) Af Amer (>60) mL/min Est GFR (MDRD) Non-Af (>60) mL/min BUN/Creatinine Ratio (10-20) RATIO Glucose (74-106) mg/dL Calcium (8.5-10.1) mg/dL Troponin I < 0.015 (<0.045) ng/mL POC Glucose 105 115 H (70-110) mg/dL 01/15/19 01/15/19 01/15/19 Range/Units 22:45 22:12 19:05 WBC (4.4-11.0) K/mm3 RBC (4.2-5.4) M/mm3 Hgb (12.0-15.0) g/dL Hct (37-47) % MCV (81-99) fL MCH (27.0-32.0) pg MCHC (32-36) g/dL RDW Std Deviation (35.1-43.9) fl RDW Coeff of Taryn (11.6-14.6) % Plt Count (150-450) K/mm3 MPV (6.2-12.0) fl Immature Gran % (Auto) (0.0-0.9) % Neut % (Auto) (47-70) % Lymph % (Auto) (19-41) % [place] % (Auto) (0-10) % Eos % (Auto) (0-5) % Baso % (Auto) (0-1) % Absolute Neuts (auto) (2.0-7.7) X10^3/uL Absolute Lymphs (auto) (0.83-4.51) X10^3/uL Nucleated RBC % (0-5) % Sodium 141 (136-145) mmol/L Potassium 3.7 (3.5-5.1) mmol/L Chloride 109 H (98-107) mmol/L Carbon Dioxide 28.0 (21.0-32.0) mmol/L Anion Gap 4 L (5-15) BUN 9 (7-18) mg/dL Creatinine 0.86 (0.55-1.02) mg/dL Estim Creat Clear Calc 65.33 ml/min Est GFR (MDRD) Af Amer 89 (>60) mL/min Est GFR (MDRD) Non-Af 74 (>60) mL/min BUN/Creatinine Ratio 10.5 (10-20) RATIO Glucose 116 H (74-106) mg/dL Calcium 8.8 (8.5-10.1) mg/dL Troponin I < 0.015 < 0.015 (<0.045) ng/mL POC Glucose 111 H (70-110) mg/dL 01/15/19 Range/Units 19:05 WBC 11.4 H (4.4-11.0) K/mm3 RBC 4.49 (4.2-5.4) M/mm3 Hgb 14.9 (12.0-15.0) g/dL Hct 43.4 (37-47) % MCV 96.7 (81-99) fL MCH 33.2 H (27.0-32.0) pg MCHC 34.3 (32-36) g/dL RDW Std Deviation 44.7 H (35.1-43.9) fl RDW Coeff of Taryn 12.5 (11.6-14.6) % Plt Count 265 (150-450) K/mm3 MPV 10.0 (6.2-12.0) fl Immature Gran % (Auto) 0.300 (0.0-0.9) % Neut % (Auto) 48.4 (47-70) % Lymph % (Auto) 41.1 H (19-41) % [place] % (Auto) 6.8 (0-10) % Eos % (Auto) 2.6 (0-5) % Baso % (Auto) 0.8 (0-1) % Absolute Neuts (auto) 5.5 (2.0-7.7) X10^3/uL Absolute Lymphs (auto) 4.67 H (0.83-4.51) X10^3/uL Nucleated RBC % 0 (0-5) % Sodium (136-145) mmol/L Potassium (3.5-5.1) mmol/L Chloride (98-107) mmol/L Carbon Dioxide (21.0-32.0) mmol/L Anion Gap (5-15) BUN (7-18) mg/dL Creatinine (0.55-1.02) mg/dL Estim Creat Clear Calc ml/min Est GFR (MDRD) Af Amer (>60) mL/min Est GFR (MDRD) Non-Af (>60) mL/min BUN/Creatinine Ratio (10-20) RATIO Glucose (74-106) mg/dL Calcium (8.5-10.1) mg/dL Troponin I (<0.045) ng/mL POC Glucose (70-110) mg/dL none Operations: None Procedures: Stress test - Impression: 1. Rest and stress SPECT Cardiolite nuclear imaging demonstrate myocardial perfusion changes appearing compatible with the effects of soft tissue attenuation/artifact and/or gastrointestinal tracer uptake/detraction although a small area of previous myocardial injury/infarction following the mid inferior segment cannot necessarily be excluded. There are no myocardial perfusion changes considered diagnostic for associated stress-induced myocardial ischemia. 2. The gated Cardiolite study reports an LVEF of 74 %. Summary of Care Provided: The patient is a 53 year old F with a past medical history of diabetes mellitus type 2, schizophrenia, gastroesophageal reflux disease, tobacco dependence, hyperlipidemia, morbid obesity, COPD and depression who presented to the emergency department at [facility] on 01/15/2019 complaining of intermittent anterior chest pain for the preceding 3 days not associated with exertion. She occasionally has had this in the past. the pain did not increase with deep breaths or with movement. The pain came on at rest, somewhat after she had eaten. There was no radiation of the pain and she had no nausea, vomiting, palpitations. She did complain of shortness of breath but nothing more than usual. Vital signs at presentation to the emergency room were temperature 97.5, pulse rate 100, blood pressure 141/80, respiratory rate 18 and she was 94 to 95% saturated on room air. Troponin was less than 0.015. EKG showed normal sinus rhythm with no suspicious ST or T wave changes. Chest x-ray showed no infiltrates, pleural effusions or pulmonary vascular congestion. She was admitted to a monitored bed on PCU and serial cardiac enzymes were obtained and they were negative. On 01/16/2019 she had a chemical nuclear stress test that was negative for ischemia. Gated nuclear ejection fraction was 74%. I suspect the chest pain is more likely than not associated with reflux. She consumes large amounts of caffeine a day, is morbidly obese and smokes. She was given literature describing pharmacologic and nonpharmacologic treatment of gastroesophageal reflux disease. Omeprazole was increased to 20 mg p.o. twice daily. Smoking cessation counseling was given. She was given literature on planning to stop smoking and how to get help. She will follow-up with Dr. Baez in 1-2 weeks. She was instructed to call the hospital and ask for the smoking cessation coordinator if she wanted help to stop smoking. Alert and oriented x3, no apparent distress Lungs-clear to auscultation with no rales, wheezes or rhonchi. Heart-regular rate and rhythm, no murmur, no gallop, no rub, no ectopic activity on telemetry and patient was in normal sinus rhythm for the duration of her hospital admission. Abdomen-obese, soft, nontender, nondistended, bowel sounds present. No peripheral edema No focal neurologic deficits This note was generated with [employer] dictation software. It may contain incorrect words, spelling, and punctuation that were not noted in checking the note before signing. Patient Problems: Active and Suspected Problems (Last Updated 04/17/18 @ 03:32 by Reymundo Wynn MD) Non-cardiac chest pain (Acute) - Physical Exam Vital Signs Temp Pulse Resp BP Pulse Ox 97.5 F L 89 16 103/67 95 01/16/19 09:48 01/16/19 09:48 01/16/19 09:48 01/16/19 09:48 01/16/19 09:48 Oxygen Flow Rate (L/min) 2 Oxygen Delivery Method Room Air Weight: 202 lb 6.15 oz Body Mass Index (BMI) 61.7 Intake and Output for Last 24 Hours 01/14/19 01/15/19 01/16/19 23:59 23:59 23:59 Intake Total 240 / 240 510 / 510 Balance 240 / 240 510 / 510 Laboratory Tests Past 24 Hrs 01/15/19 01/15/19 01/15/19 19:05 19:05 22:45 WBC 11.4 H RBC 4.49 Hgb 14.9 Hct 43.4 MCV 96.7 MCH 33.2 H MCHC 34.3 RDW Std Deviation 44.7 H RDW Coeff of Taryn 12.5 Plt Count 265 MPV 10.0 Immature Gran % (Auto) 0.300 Neut % (Auto) 48.4 Lymph % (Auto) 41.1 H [place] % (Auto) 6.8 Eos % (Auto) 2.6 Baso % (Auto) 0.8 Absolute Neuts (auto) 5.5 Absolute Lymphs (auto) 4.67 H Nucleated RBC % 0 Sodium 141 Potassium 3.7 Chloride 109 H Carbon Dioxide 28.0 Anion Gap 4 L BUN 9 Creatinine 0.86 Estim Creat Clear Calc 65.33 Est GFR (MDRD) Af Amer 89 Est GFR (MDRD) Non-Af 74 BUN/Creatinine Ratio 10.5 Glucose 116 H Calcium 8.8 Troponin I < 0.015 < 0.015 01/16/19 01:05 WBC RBC Hgb Hct MCV MCH MCHC RDW Std Deviation RDW Coeff of Taryn Plt Count MPV Immature Gran % (Auto) Neut % (Auto) Lymph % (Auto) [place] % (Auto) Eos % (Auto) Baso % (Auto) Absolute Neuts (auto) Absolute Lymphs (auto) Nucleated RBC % Sodium Potassium Chloride Carbon Dioxide Anion Gap BUN Creatinine Estim Creat Clear Calc Est GFR (MDRD) Af Amer Est GFR (MDRD) Non-Af BUN/Creatinine Ratio Glucose Calcium Troponin I < 0.015 POC Glucose 01/16/19 01/16/19 01/15/19 11:39 05:57 22:12 POC Glucose 105 115 H 111 H Discharge Activity: Return to Normal Activity Call your doctor if you observe: Fever of 101 or Higher, Dizziness, Prolonged hiccoughing, Calf discomfort, Uncontrolled pain Home Medications: Medications to take at Discharge Benztropine [Cogentin] 2 mg PO BID PRN 04/27/16 Escitalopram Oxalate [Lexapro] 20 mg PO DAILY 04/27/16 Perphenazine 8 mg PO QHS 04/27/16 Albuterol IH (ProAir) [Proair Hfa] 2 puff INHALATION PRN PRN 10/07/16 Atorvastatin Calcium [Lipitor] 20 mg PO QHS 10/07/16 Aspirin [Aspirin, Baby] 81 mg PO DAILY@0800 04/17/18 Loratadine 10 mg PO DAILY 04/17/18 Melatonin 6 mg PO QHS 04/17/18 Montelukast [Singulair] 10 mg PO DAILY 04/17/18 Perphenazine 2 mg PO DAILY 04/17/18 metFORMIN HCl [Glucophage] 500 mg PO BIDCM #60 tablet 04/18/18 Omeprazole 20 mg PO BID #60 capsule. 01/16/19 Following Prescrptions Were Given to Patient: Omeprazole 20 mg PO BID #60 capsule. Prescription Printed Primary Care Physician: Dirk Baez MD [Primary Care Provider] - Please follow up with your Primary Care Physician in: 1-2 weeks Patient Instructions: Tips for Quitting Smoking (Cardiovascular), What Is GERD?, Lifestyle Changes for Controlling GERD, Medications for GERD, Why Do You Smoke?, Planning to Quit Smoking, Getting Support for Quitting Smoking Disposition: Home Minutes spent on discharge:: 30 Patient Condition:: Good Medical Necessity - Tobacco Use Smoking Status: Current every day smoker Tobacco Use: Cigarettes Meaningful Use Info Meaningful Use Diagnoses (Choose all that apply): None applicable Code Visit OBSV E&M: 55706 Observation care discharge
== END 2019-01-16 11:53 | disposition home or self-care (01) ==
LOC: ED 19:22 → PCU 01-16 06:19
PROVIDERS: Admitting Provider Internal Medicine; Emergency Provider Emergency Medicine; Family Provider Family Medicine; PCP Family Medicine; Referring Provider Internal Medicine; Visit Provider Internal Medicine
DX: R07.89 Other chest pain (principal); K21.9 Gastro-esophageal reflux disease without esophagitis; E66.01 Morbid (severe) obesity due to excess calories; E78.5 Hyperlipidemia, unspecified; F32.9 Major depressive disorder, single episode, unspecified; F20.9 Schizophrenia, unspecified; R06.02 Shortness of breath; E11.9 Type 2 diabetes mellitus without complications; J44.9 Chronic obstructive pulmonary disease, unspecified; Z79.899 Other long term (current) drug therapy; Z79.82 Long term (current) use of aspirin; Z68.39 Body mass index [BMI] 39.0-39.9, adult; Z71.3 Dietary counseling and surveillance; Z79.84 Long term (current) use of oral hypoglycemic drugs; F17.210 Nicotine dependence, cigarettes, uncomplicated
CPT/HCPCS: 36415; 71045; 78452; 80048; 82962; 84484; 85025; 93005; 93017; 96374; 96375; 97802; 99218; 99285; A9500; A4216; G0378; J2405; J2785

== ENCOUNTER 2019-04-05 18:01 | Observation (INO) | payer MEDICARE, SELFPAY ==
[2019-04-05 18:02] VITALS: BP 105/73; PULSE 94; RESP 18; O2SAT 95
[2019-04-05 18:03] VITALS: BP 105/73; PULSE 94; RESP 18; TEMP 36.1; O2SAT 95; BMI 40.0
--- NOTE | 2019-04-05 18:26 | RAD_ITS ---
STUDY: X-RAY CHEST REASON FOR EXAM: Female, 53 years old. Chest pain TECHNIQUE: Single AP portable view of the chest. COMPARISON: January 15, 2019 FINDINGS: The lungs are clear and expanded. There is no demonstrated pleural abnormality. Normal size heart. Stable mediastinal structures. Stable osseous structures. There is no demonstrated abnormality of the visualized soft tissue structures of the upper abdomen. RAD/Chest 1 View (Portable) IMPRESSION: No acute process Electronically Signed: Saul Canas MD at 18:58 EDT , Service support ,
--- NOTE | 2019-04-05 18:26 | EKG12_ITS ---
Test Reason : CP Blood Pressure : / mmHG Vent. Rate : 093 BPM Atrial Rate : 093 BPM P-R Int : 158 ms QRS Dur : 096 ms QT Int : 370 ms P-R-T Axes : 065 067 071 degrees QTc Int : 460 ms Normal sinus rhythm Normal ECG Confirmed by ARIELLE CAVAZOS, DUYEN ([id number]), assignment editor BRANDIE LEONARD ([id number]) on 04/07/2019 1:21:30 PM Referred By: PRECIOUS Confirmed By:YORDAN GUZMÁN MD
[2019-04-05 18:49] LABS: Absolute Lymphocyte Count 4.41 X10^3/uL (0.83-4.51); Absolute Neutrophil Count 6.1 X10^3/uL (2.0-7.7); Basophil% 0.8 % (0-1); Eosinophil# 0.37 X10^3/uL; Eosinophils% 3.1 % (0-5); Hematocrit 43.1 % (37-47); Hemoglobin 14.2 g/dL (12.0-15.0); Lymphocyte # 4.41 X10^3/ul (4.0); Lymphocyte % 37.1 % (19-41); Mean Corp Hgb Conc 32.9 g/dL (32-36); Mean Corpuscular Volume 97.1 fL (81-99); Mean Platelet Vol. 9.5 fl (6.2-12.0); Monocyte# 0.83 X10^3/uL; NRBC Flagged by Analyzer 0 % (0-5); Neutrophil # 6.12 X10^3/uL (2.7-7.7); Neutrophil % 51.6 % (47-70); POSITIVE MORPHOLOGY YES; Platelet Count 321 K/mm3 (150-450); RBC Distribution Width SD 45.5 fl (35.1-43.9); Red Blood Count 4.44 M/mm3 (4.2-5.4); White Blood Count 11.9 K/mm3 (4.4-11.0)
[2019-04-05] MEDS: 0.9% Normal Saline 1,000 ML 150 ML IV (18:53)
[2019-04-05 18:54] LABS: Prothrombin Time (Protime)PT. 12.8 SECONDS (11.7-14.9)
[2019-04-05 18:58] LABS: D-Dimer Quantitative (DVT/PE) 0.42 FEU/ug/m (0.27-0.49)
[2019-04-05 19:03] LABS: Differential Indicated SCAN CRITERIA MET
[2019-04-05 19:04] LABS: Anion Gap 1 (5-15); BUN 9 mg/dL (7-18); BUN/Creat Ratio 12.5 RATIO (10-20); Calcium,Total 9.1 mg/dL (8.5-10.1); Chloride 106 mmol/L (98-107); Creatinine, Serum 0.72 mg/dL (0.55-1.02); EST Glomerular Filtration Rate 90 mL/min (>60); Est Glom Filt Rate - Afr Amer 109 mL/min (>60); Estimated Creatinine Clearance 64.91 ml/min; Glucose 106 mg/dL (74-106); Potassium 3.7 mmol/L (3.5-5.1); Sodium Level 140 mmol/L (136-145)
[2019-04-05 19:25] LABS: Differential Comment SCANNED
[2019-04-05 19:26] LABS: Bedside Glucose 120 mg/dL (70-110)
--- NOTE | 2019-04-05 20:16 | ED.VIS.GEN ---
History of Present Illness Chief Complaint: Chest Pain Detail of Chief Complaint: Chest pain, syncope Informant: Patient Onset: Today Current Severity: Mild Maximum Severity: Moderate Narrative: Patient states that at 5 PM this evening she developed a tight squeezing left upper chest pain rating toward her left shoulder. This is followed by a syncopal episode. She does report feeling some palpitations prior to her syncopal episode. At the time of my evaluation she reports some mild pain around her left shoulder. She denies shortness of breath. She denies history of coronary disease. She is a history of schizophrenia, diabetes, depression, high cholesterol, GERD, COPD. Past Medical History - Allergies and Home Meds Allergies/Adverse Reactions: Allergies simvastatin Adverse Reaction (Mild, Verified 04/05/19 18:47) Other MUSCLES IN LEGS HURTS meloxicam Adverse Reaction (Verified 04/05/19 18:47) Chest tightness morphine Adverse Reaction (Verified 04/05/19 18:47) Other trazodone Adverse Reaction (Verified 04/05/19 18:47) Vomiting Prior records reviewed: Yes Past Medical History: - - Reviewed Surgical History: cholecystectomy, hysterectomy Lives: Spouse/ Significant Other Smoking Status: Current every day smoker - Family History Maternal Family History: Reports: Diabetes Paternal Family History: Reports: COPD Review of Systems General: Denies: Chills, Fever Eyes: Denies: Visual changes - bilaterally ENT: Denies: Bilateral ear pain Cardiovascular: Reports: Chest pain, Palpitations Respiratory: Denies: Dyspnea, Cough Gastrointestinal: Denies: Abdominal pain, Nausea, Vomiting, Diarrhea Musculoskeletal: Denies: Myalgias Skin: Denies: Rash Neurological: Denies: Headache Hematologic: Denies: Easy bruising Allergy: Denies: Uticaria Physical Exam Vital Signs/Narrative: Vital Signs Temp Pulse Resp BP Pulse Ox 04/05/19 18:03 97.0 F L 94 18 105/73 95 04/05/19 18:02 94 18 105/73 95 Inital Vital Signs reviewed: Yes General: Well nourished, Well developed Head: Normocephalic ENT: Moist mucous membranes Neck: Supple Cardiovascular: Regular rate, Regular rhythm Respiratory: No distress, CTA bilaterally Abdomen: Soft, Nontender, Hypoactive bowel sounds Extremities: Nontender, No edema Skin: Normal color, No rash Neurological: Alert, Oriented x3 Psychological: Normal affect Diagnostic/Tx/Re-eval Impressions Chest X-Ray 04/05/19 18:26 IMPRESSION: No acute process Electronically Signed: Saul Canas MD at 18:58 EDT , Service support , 04/05/19 18:26 Chest 1 View (Portable) [RAD] Stat Laboratory Results 04/05/19 04/05/19 04/05/19 18:14 18:35 18:35 WBC 11.9 H RBC 4.44 Hgb 14.2 Hct 43.1 MCV 97.1 MCH 32.0 MCHC 32.9 RDW Std Deviation 45.5 H RDW Coeff of Taryn 13.0 Plt Count 321 MPV 9.5 Immature Gran % (Auto) 0.400 Neut % (Auto) 51.6 Lymph % (Auto) 37.1 [place] % (Auto) 7.0 Eos % (Auto) 3.1 Baso % (Auto) 0.8 Absolute Neuts (auto) 6.1 Absolute Lymphs (auto) 4.41 Nucleated RBC % 0 Differential Comment SCANNED PT 12.8 INR 1.0 D-Dimer Quant (PE/DVT) 0.42 Sodium Potassium Chloride Carbon Dioxide Anion Gap BUN Creatinine Estim Creat Clear Calc Est GFR (MDRD) Af Amer Est GFR (MDRD) Non-Af BUN/Creatinine Ratio Glucose Calcium Troponin I POC Glucose 120 H 04/05/19 18:35 WBC RBC Hgb Hct MCV MCH MCHC RDW Std Deviation RDW Coeff of Taryn Plt Count MPV Immature Gran % (Auto) Neut % (Auto) Lymph % (Auto) [place] % (Auto) Eos % (Auto) Baso % (Auto) Absolute Neuts (auto) Absolute Lymphs (auto) Nucleated RBC % Differential Comment PT INR D-Dimer Quant (PE/DVT) Sodium 140 Potassium 3.7 Chloride 106 Carbon Dioxide 33.0 H Anion Gap 1 L BUN 9 Creatinine 0.72 Estim Creat Clear Calc 64.91 Est GFR (MDRD) Af Amer 109 Est GFR (MDRD) Non-Af 90 BUN/Creatinine Ratio 12.5 Glucose 106 Calcium 9.1 Troponin I < 0.015 POC Glucose - EKG Initial EKG Interpretation: Sinus Rhythm - Sinus at 93 with no acute ischemia. - Medical Decision Making Patient was given aspirin on arrival. On repeat evaluation she is resting comfortably. I did discuss my concerns with her about having palpitations with chest pain followed by syncope. She is agreed to observation overnight for cycling of enzymes and observation for dysrhythmia. I spoke with the hospitalist. ED Disposition - Plan for ED Patient: Disposition: Acute Care Hospital [facility] Diagnosis: Chest pain, Syncope
[2019-04-05 20:25] VITALS: BP 116/65; PULSE 87; RESP 18; O2SAT 95
--- NOTE | 2019-04-05 20:34 | HP.PCM_ITS ---
Problem List (1) Syncope Status: Acute (2) Chest pain Status: Acute (3) Non-cardiac chest pain Status: Inactive (4) Acute exacerbation of COPD with asthma Status: Inactive History of Present Illness Date of Admission: 04/05/19 Chief Complaint: syncope The patient is a 53 year old F with a significant history of schizophrenia; G ERD; tobacco abuse; depression; hypercholesterolemia; and COPD who presented to the emergency department with syncope. Patient symptoms started with fluttering of her left chest while at rest. She felt weak and then she had a syncopal episode. She also reports left-sided chest pain that radiates to her shoulder. The pain is episodic and it is with intensity 8-9 on a scale of 1-10. She describes her pain as an aching pain that occurred at rest. She denies any aggravating or ameliorating factors.The pain radiated to her left shoulder. She denies nausea vomiting or diaphoresis. At the emergency department her chest pain had resolved. Past Medical History Past Medical History (Chronic Problems): Chronic Problems (Last Updated 04/17/18 @ 03:32 by Reymundo Wynn MD) Diabetes mellitus type 2 in obese (Chronic) Depression (Chronic) Hyperlipidemia (Chronic) Schizophrenia (Chronic) Tobacco dependence (Chronic) Morbid obesity (Chronic) GERD (gastroesophageal reflux disease) (Chronic) Medical History: Medical History (Last Reviewed 04/06/19 @ 05:50 by Reymundo Wynn MD) Asthma J45.909 COPD (chronic obstructive pulmonary disease) J44.9 Allergies simvastatin Adverse Reaction (Mild, Verified 04/05/19 18:47) Other MUSCLES IN LEGS HURTS meloxicam Adverse Reaction (Verified 04/05/19 18:47) Chest tightness morphine Adverse Reaction (Verified 04/05/19 18:47) Other trazodone Adverse Reaction (Verified 04/05/19 18:47) Vomiting Home Medications: Ambulatory Orders Medication Instructions Recorded Benztropine [Cogentin] 2 mg PO BID PRN 04/27/16 Escitalopram Oxalate [Lexapro] 20 mg PO DAILY 04/27/16 Perphenazine 8 mg PO QHS 04/27/16 Albuterol IH (ProAir) [Proair Hfa] 2 puff INHALATION PRN PRN 10/07/16 Aspirin [Aspirin, Baby] 81 mg PO DAILY@0800 04/17/18 Loratadine 10 mg PO DAILY 04/17/18 Montelukast [Singulair] 10 mg PO DAILY 04/17/18 Perphenazine 2 mg PO DAILY 04/17/18 metFORMIN HCl [Glucophage] 500 mg PO BIDCM #60 tablet 04/18/18 Acetaminophen [Tylenol Extra 500 mg PO DAILY PRN PRN 04/05/19 Strength] Atorvastatin Calcium [Lipitor] 40 mg PO QHS 04/05/19 Mirtazapine 15 mg PO QHS 04/05/19 Omeprazole 40 mg PO DAILY 04/05/19 Surgical History: cholecystectomy, hysterectomy Psychiatric History: Depression, Schizophrenia Lives: Spouse/ Significant Other Smoking Status: Current every day smoker Tobacco Use: Cigarettes - *Family History Maternal History Items: Diabetes Paternal History Items: COPD Review of Systems Constitutional: Reports: Weakness. Denies: Chills, Fever, Weight Change HEENT: Denies: Head Aches, Sinus Congestion, Sinus Drainage Cardiovascular: Reports: Chest Pain, Palpitations, Syncope Respiratory: Denies: Cough, Shortness of breath at rest, Sputum production Gastrointestinal: Denies: Abdominal Pain, Nausea, Vomiting Genitourinary: Denies: Dysuria Musculoskeletal: Denies: Joint Pain, Joint Tenderness Skin: Denies: Rash, Wounds Neurological: Denies: Numbness, Tingling, Focal weakness Psychiatric: Denies: Anxiety, Depression, Homicidal Ideations, Suicidal Ideations Hematologic/ Lymphatic: Denies: Easy Bruising, Easy Bleeding VTE Information - Inpt Only VTE Present on Admission: No VTE Mechan Device Prophylaxis: SCD's VTE Pharm Prophylaxis ordered?: No Patient Problems: Active and Suspected Problems (Last Updated 04/17/18 @ 03:32 by Reymundo Wynn MD) Chest pain (Acute) Syncope (Acute) Syncope (Acute) - Physical Exam Vitals/I&O's: Vital Signs Temp Pulse Resp BP Pulse Ox 97.0 F L 87 18 116/65 95 04/05/19 18:03 04/05/19 20:25 04/05/19 20:25 04/05/19 20:25 04/05/19 20:25 Oxygen Delivery Method Room Air Weight: 93 kg Body Mass Index (BMI) 40.0 Finger Stick Blood Glucose 120 General: Alert, Oriented x3, Cooperative HEENT: Atraumatic, PERRLA, EOMI, Normocephalic Neck: Supple, No JVD, Negative Carotid Bruits Lungs: Clear to auscultation, Normal air movement Cardiovascular: Regular rate, No murmurs Abdomen: Bowel Sounds Present, Soft, Non Tender Extremities: No edema, Capillary Refill Less than 3 Seconds Skin: - - Yellowish lesion bilaterally at the upper eyelid. Musculoskeletal: No Tenderness to Palpation of Joints or Extremities Neurological: Cranial nerves II-XII grossly intact Psych/Mental Status: Normal Affect, Appropriate Laboratory Results 04/05/19 18:14: POC Glucose 120 H 04/05/19 18:35: WBC 11.9 H, RBC 4.44, Hgb 14.2, Hct 43.1, MCV 97.1, MCH 32.0, MCHC 32.9, RDW Std Deviation 45.5 H, RDW Coeff of Taryn 13.0, Plt Count 321, MPV 9.5, Immature Gran % (Auto) 0.400, Neut % (Auto) 51.6, Lymph % (Auto) 37.1, [place] % (Auto) 7.0, Eos % (Auto) 3.1, Baso % (Auto) 0.8, Absolute Neuts (auto) 6.1, Absolute Lymphs (auto) 4.41, Nucleated RBC % 0, Differential Comment SCANNED 04/05/19 18:35: PT 12.8, INR 1.0, D-Dimer Quant (PE/DVT) 0.42 04/05/19 18:35: Sodium 140, Potassium 3.7, Chloride 106, Carbon Dioxide 33.0 H, Anion Gap 1 L, BUN 9, Creatinine 0.72, Estim Creat Clear Calc 64.91, Est GFR (MDRD) Af Amer 109, Est GFR (MDRD) Non-Af 90, BUN/Creatinine Ratio 12.5, Glucose 106, Calcium 9.1, Troponin I < 0.015 Current Medications Sodium Chloride () 1,000 mls @ 150 mls/hr IV .[id number] [facility] Last Admin: 04/05/19 18:53 Dose: 150 mls/hr Documented by: Assessment/Plan All Active Problems (Last Updated 04/17/18 @ 03:32 by Reymundo Wynn MD) Chest pain (Acute) Syncope (Acute) Syncope (Acute) The patient is a 53 year old F with a significant history of schizophrenia; GERD; tobacco abuse; depression; hypercholesterolemia; and COPD who presented to the emergency department with syncope; palpitations and chest pain. Syncope EKG at the emergency department showed sinus rhythm. Will get an echocardiogram and orthostatic vitals. IV hydration. Placed on PCU on telemetry. Chest pain Place on a monitored bed at PCU CXR independently reviewed confirms no acute cardiopulmonary process. EKG independently reviewed confirms sinus rhythm. ASA 81 mg p.o. daily continued We will check lipid panel. Statin: Home high intensity statin continued Initial cardiac enzymes was unremarkable. Serial cardiac enzymes Stat EKG as needed for chest pain Chemical stress test in the AM if the cardiac enzymes are negative Diabetes mellitus On presentation her blood glucose was within goal. Hold home metformin since it is too early in admission. While n.p.o. we will get Accu-Chek every 6 hours and put on correction scale insulin. Patient n.p.o. for stress test. Schizophrenia Perphenazine and Cogentin continued Depression/anxiety Lexapro and mirtazapine continued Tobacco abuse Counseled Nicotine patch ordered DVT prophylaxis SCD ordered Code Visit OBSV E&M: 57301 Initial observation care L3
--- NOTE | 2019-04-05 21:29 | ECHOD_ITS ---
Reason For Study: syncope Procedure This was a 2D Doppler, Color Flow transthoracic echocardiogram. Exam performed portable in patient room. Left Ventricle Normal LV size. The estimated ejection fraction is 55 %. No evidence for diastolic dysfunction. No regional wall motion abnormalities noted. Right Ventricle Normal RV size. Normal systolic function. Atria Normal left atrium. Normal right atrium. No doppler evidence for ASD. Mitral Valve There is no mitral valve stenosis. No mitral valve insufficiency. Tricuspid Valve There is no tricuspid stenosis. Trivial tricuspid valve insufficiency. Unable to estimate RV systolic pressure due to insufficient tricuspid regurgitant envelope. Aortic Valve Trisinus/trileaflet aortic valve. There is no aortic stenosis. No aortic valve insufficiency. Pulmonic Valve There is no pulmonic valvular stenosis. No pulmonic valve insufficiency. Great Vessels Normal aortic root. Pericardium/Pleural No pericardial effusion. MMode/2D Measurements & Calculations LVIDd: 4.9 cm IVSd: 0.83 cm Ao root diam: 2.6 cm LVIDs: 3.3 cm LVPWd: 0.94 cm RVDd: 2.7 cm FS: 31.4 % LAV(MOD-bp): 34.8 ml LA A4 area: 13.3 cm2 LA dimension(2D): 3.1 cm LAV(MOD-bp) Indexed: 18.1 ml/m2 LAV(MOD-sp2): 33.3 ml LAV(MOD-sp4): 33.4 ml RA A4 area: 10.3 cm2 Time Measurements MV dec time: 0.16 sec Doppler Measurements & Calculations MV E max jun: 85.5 cm/sec Lat Peak E' Jun: 7.6 cm/sec Med Peak E' Jun: 8.1 cm/sec MV A max jun: 65.9 cm/sec E/E' lat: 11.2 E/E' med: 10.6 MV E/A: 1.3 Ao V2 max: 114.2 cm/sec LV V1 max: 78.3 cm/sec PA V2 max: 88.8 cm/sec Ao max P.2 mmHg LV V1 max P.5 mmHg TR max jun: 264.8 cm/sec TR max P.0 mmHg Interpretation Summary The estimated ejection fraction is 55 %. No evidence for diastolic dysfunction. Ordering Physician: Reymundo Wynn Referring Physician: Dirk Baez Performed By: Catie Becker RDCS, RVT
--- NOTE | 2019-04-05 21:29 | EKG12_ITS ---
Test Reason : AM EKG Blood Pressure : / mmHG Vent. Rate : 089 BPM Atrial Rate : 089 BPM P-R Int : 178 ms QRS Dur : 098 ms QT Int : 388 ms P-R-T Axes : 066 064 068 degrees QTc Int : 472 ms Normal sinus rhythm Nonspecific ST abnormality Abnormal ECG When compared with ECG of 05-APR-2019 22:23, MANUAL COMPARISON REQUIRED, DATA IS UNCONFIRMED Confirmed by NIURKA CAVAZOS, AMARA ([id number]), offline editor CESAR CASTRO ([id number]) on 04/10/2019 11:32:39 AM Referred By: PEACE Confirmed By:AMARA BAH MD
[2019-04-05 21:37] VITALS: BMI 41.8
[2019-04-05 21:40] VITALS: BP 113/61; BP 121/77; PULSE 81; RESP 18; TEMP 36.4; O2SAT 95
[2019-04-05 21:44] VITALS: BMI 41.8
[2019-04-05 21:52] VITALS: PULSE 81
[2019-04-05 23:00] VITALS: PULSE 82
[2019-04-05] MEDS: 0.9% Normal Saline 1,000 ML 100 ML IV (23:04)
[2019-04-05] MEDS: Atorvastatin Calcium 40 MG Tablet PO (23:09)
[2019-04-05] MEDS: Mirtazapine 15 MG Tablet PO (23:10)
[2019-04-05 23:21] LABS: Bedside Glucose 110 mg/dL (70-110)
[2019-04-06] VITALS (7 sets, daily range): BP systolic 95–130; BP diastolic 52–76; PULSE 85–104; RESP 16; TEMP 36.6; O2SAT 92–93
--- NOTE | 2019-04-06 05:55 | EKG12_ITS ---
Test Reason : CP ADMIT Blood Pressure : / mmHG Vent. Rate : 078 BPM Atrial Rate : 078 BPM P-R Int : 186 ms QRS Dur : 100 ms QT Int : 408 ms P-R-T Axes : 059 060 064 degrees QTc Int : 465 ms Normal sinus rhythm Normal ECG When compared with ECG of 16-JAN-2019 05:13, No significant change was found Confirmed by AMARA BAH MD ([id number]), newspaper editor managing CESAR CASTRO ([id number]) on 04/10/2019 11:32:09 AM Also confirmed by AMARA BAH MD ([id number]), newspaper editor managing BRANDIE LEONARD ([id number]) on 04/11/2019 1:08:17 PM Referred By: DR HEALY Confirmed By:AMARA BAH MD
[2019-04-06] MEDS: Aspirin E.C. 81 MG Tablet PO (06:14)
[2019-04-06 06:56] LABS: Bedside Glucose 110 mg/dL (70-110)
[2019-04-06 07:23] LABS: Cholesterol 172 mg/dL (200); High Density Lipoprotein 30 mg/dL; Triglycerides 330 mg/dL; Very Low Density Lipoprotein 66 mg/dL (5-40)
[2019-04-06] MEDS: 0.9% Normal Saline 1,000 ML 100 ML IV (09:31)
[2019-04-06] MEDS: Glucerna Shake 120 ML LIQUID PO (09:36)
[2019-04-06] MEDS: Montelukast 10 MG Tablet PO (09:38)
[2019-04-06] MEDS: Pantoprazole Sodium 40 MG Tablet PO (09:38)
[2019-04-06] MEDS: Loratadine 10 MG Tablet PO (09:39)
[2019-04-06] MEDS: Escitalopram Oxalate 20 MG Tablet PO (09:39)
--- NOTE | 2019-04-06 11:44 | DCINST_ITS ---
- Discharge Diagnoses Current Active Problems: Current Active and Chronic Problems (Last Reviewed 04/06/19 @ 05:50 by Reymundo Wynn MD) Chest pain (Acute) Syncope (Acute) Syncope (Acute) You will use the following diet at home:: Calorie/Carbohydrate Controlled (specify 1200, 1400, etc), Cardiac Discharge Activity: Return to Normal Activity Call your doctor if you observe: Shortness of breath, Dizziness, Fainting spells, Chest pain Allergies/Adverse Reactions: Allergies simvastatin Adverse Reaction (Mild, Verified 04/05/19 18:47) Other MUSCLES IN LEGS HURTS meloxicam Adverse Reaction (Verified 04/05/19 18:47) Chest tightness morphine Adverse Reaction (Verified 04/05/19 18:47) Other trazodone Adverse Reaction (Verified 04/05/19 18:47) Vomiting Medications to take at Discharge Benztropine [Cogentin] 2 mg PO BID PRN 04/27/16 Escitalopram Oxalate [Lexapro] 20 mg PO DAILY 04/27/16 Perphenazine 8 mg PO QHS 04/27/16 Albuterol IH (ProAir) [Proair Hfa] 2 puff INHALATION PRN PRN 10/07/16 Aspirin [Aspirin, Baby] 81 mg PO DAILY@0800 04/17/18 Loratadine 10 mg PO DAILY 04/17/18 Montelukast [Singulair] 10 mg PO DAILY 04/17/18 Perphenazine 2 mg PO DAILY 04/17/18 metFORMIN HCl [Glucophage] 500 mg PO BIDCM #60 tablet 04/18/18 Acetaminophen [Tylenol] 500 mg PO DAILY PRN PRN 04/05/19 Atorvastatin Calcium [Lipitor] 40 mg PO QHS 04/05/19 Mirtazapine 15 mg PO QHS 04/05/19 Omeprazole 40 mg PO DAILY 04/05/19 Orders to be completed after discharge: Cardiac Holter Monitor, Set-Up [[facility]] Location: None Selected Primary Care Physician: Dirk Baez MD [Primary Care Provider] - Please follow up with your Primary Care Physician in: 1 Week Test Results: Test results from this visit will be discussed in further detail at your follow- up appointment, if applicable. Proposed Discharge Date: 04/06/19
--- NOTE | 2019-04-06 11:51 | DS.PCM_ITS ---
<Georgina Sosa - Last Filed: 04/06/19 12:03> Discharge Date and Diagnosis Date of Admission: 04/05/19 Date of Discharge: 04/06/19 - Primary Discharge Diagnosis Active and Suspected Problems (Last Reviewed 04/06/19 @ 05:50 by Reymundo Wynn MD) 1. Atypical chest pain, ACS ruled out 2. Syncope 3. Suspected KALLI 4. Type 2 diabetes mellitus 5. Depression/anxiety/schizophrenia 6. Tobacco dependence 7. Hyperlipidemia 8. COPD/Asthma 9. Morbid obesity 10. GERD - Secondary Discharge Diagnosis Chronic Problems (Last Reviewed 04/06/19 @ 05:50 by Reymundo Wynn MD) Diabetes mellitus type 2 in obese (Chronic) Depression (Chronic) Hyperlipidemia (Chronic) Schizophrenia (Chronic) Tobacco dependence (Chronic) Morbid obesity (Chronic) GERD (gastroesophageal reflux disease) (Chronic) Hospital Course and Treatment Imaging Results: Diagnostic Data Chest X-Ray 04/05/19 18:26 IMPRESSION: No acute process Electronically Signed: Saul Canas MD at 18:58 EDT , Service support , Operations: None Procedures: 2-D Echocardiogram Summary of Care Provided: The patient is a 53 year old F admitted 04/05/2019 due to syncope. 1. Atypical chest pain, ACS ruled out-troponin negative. EKG without ST-T changes. Patient underwent recent stress test January 2018 which was negative for ischemia, LVEF 74%. Patient denies further chest pain. Suspect musculoskeletal versus GERD. Echocardiogram demonstrated an EF of 55%, no regional wall motion abnormalities. Follow-up with primary care provider in 1 week. 2. Syncope-troponin negative, EKG without ST-T changes. Orthostatic vitals neg ative. Echocardiogram demonstrated an EF of 55%. No arrhythmias noted on telemetry. Patient reports a history of recurrent syncope. 48-hour Holter monitor at discharge to assess for arrhythmia, to be read by Dr. Barnes. Patient reports fluttering prior to passing out in the car. 3. Suspected KALLI-recommend sleep study as outpatient, to be arranged by primary care provider. 4. Type 2 diabetes mellitus-continue home metformin regimen. 5. Depression/anxiety/schizophrenia-continue home medication regimen. 6. Tobacco dependence-encourage cessation. 7. Hyperlipidemia-lipid panel elevated. Continue home statin regimen. Recommend repeat lipid panel in 4 to 6 weeks by primary care provider. 8. COPD/Asthma-no acute exacerbation. 9. Morbid obesity-encouraged diet and lifestyle modifications. 10. GERD-continue home omeprazole regimen. Patient seen and examined prior to discharge. Physical assessment as noted below. Patient is stable for discharge with follow up recommendations as noted above. This patient was seen by QUINN Rodriguez under the supervision of Dr. Resendiz. - Physical Exam Vitals/I&O's: Vital Signs Temp Pulse Resp BP Pulse Ox 97.9 F 90 16 115/69 93 04/06/19 08:04 04/06/19 11:08 04/06/19 08:04 04/06/19 08:04 04/06/19 08:04 Oxygen Delivery Method Room Air Weight: 214 lb 1.102 oz Body Mass Index (BMI) 41.8 Finger Stick Blood Glucose 120 Orthostatic Vital Signs Start: 04/06/19 00:41 Freq: 0600 Status: Active Protocol: Activity Type Activity Date Activity User E-Sign Co-Sign Detail Recorded Client Recorded Date Recorded By Document 04/06/19 06:15 BS [id number] 04/06/19 06:21 BS 04/06/19 06:15 Orthostatic Vitals Standing -Blood Pressure (90/60-120/80) 120/76 -Extremity Use Left Arm -Pulse Rate (60-100) 98 Sitting -Blood Pressure (90/60-120/80) 120/71 -Extremity Use Left Arm -Pulse Rate (60-100) 94 Lying -Blood Pressure (90/60-120/80) 117/74 -Extremity Use Left Arm -Pulse Rate (60-100) 93 Intake and Output for Last 24 Hours 04/04/19 04/05/19 04/06/19 23:59 23:59 23:59 Intake Total 619.17 / 619.17 908.33 / 908.33 Balance 619.17 / 619.17 908.33 / 908.33 General: Alert, Oriented x3, Cooperative HEENT: Atraumatic, PERRLA, EOMI, Normocephalic Neck: Supple, No JVD, Negative Carotid Bruits Lungs: Clear to auscultation, Diminished Cardiovascular: Regular rate, Regular Rhythm, Normal S1, Normal S2, No murmurs Abdomen: Bowel Sounds Present, Soft, Non Tender, Non-Distended, Obese Extremities: No clubbing, No cyanosis, No edema, Capillary Refill Less than 3 Seconds Skin: No rashes, No breakdown Musculoskeletal: No Tenderness to Palpation of Joints or Extremities Neurological: Cranial nerves II-XII grossly intact, Neuro grossly intact Psych/Mental Status: Normal Affect, Appropriate Laboratory Results 04/05/19 18:14: POC Glucose 120 H 04/05/19 18:35: WBC 11.9 H, RBC 4.44, Hgb 14.2, Hct 43.1, MCV 97.1, MCH 32.0, MCHC 32.9, RDW Std Deviation 45.5 H, RDW Coeff of Taryn 13.0, Plt Count 321, MPV 9.5, Immature Gran % (Auto) 0.400, Neut % (Auto) 51.6, Lymph % (Auto) 37.1, Thomas % (Auto) 7.0, Eos % (Auto) 3.1, Baso % (Auto) 0.8, Absolute Neuts (auto) 6.1, Absolute Lymphs (auto) 4.41, Nucleated RBC % 0, Differential Comment SCANNED 04/05/19 18:35: PT 12.8, INR 1.0, D-Dimer Quant (PE/DVT) 0.42 04/05/19 18:35: Sodium 140, Potassium 3.7, Chloride 106, Carbon Dioxide 33.0 H, Anion Gap 1 L, BUN 9, Creatinine 0.72, Estim Creat Clear Calc 64.91, Est GFR (M DRD) Af Amer 109, Est GFR (MDRD) Non-Af 90, BUN/Creatinine Ratio 12.5, Glucose 106, Calcium 9.1, Troponin I < 0.015 04/05/19 22:04: Troponin I < 0.015 04/05/19 23:14: POC Glucose 110 04/06/19 00:32: Troponin I < 0.015 04/06/19 06:12: POC Glucose 110 04/06/19 06:30: Triglycerides 330 H, Cholesterol 172, LDL Cholesterol 76, VLDL Cholesterol 66 H, HDL Cholesterol 30 L Current Medications Acetaminophen (Tylenol) 650 mg PO Q6H PRN PRN PRN Reason: Pain Score 1-3 /Temp>100.7 Albuterol Sulfate (Ventolin Aerosols) 2.5 mg INHALATION Q2H PRN PRN PRN Reason: sob/wheezing Aspirin (Ecotrin) 81 mg PO DAILY@0800 [facility] Last Admin: 04/06/19 06:14 Dose: 81 mg Documented by: Atorvastatin Calcium (Lipitor) 40 mg PO QHS [facility] Last Admin: 04/05/19 23:09 Dose: 40 mg Documented by: Benztropine Mesylate (Cogentin) 2 mg PO BID PRN [facility] Dextrose (D50w Syringe) 0 gm IV X1 PRN; Protocol PRN Reason: Hypoglycemia Escitalopram Oxalate (Lexapro) 20 mg PO DAILY [facility] Last Admin: 04/06/19 09:39 Dose: 20 mg Documented by: Glucagon () 1 mg IM .X1 PRN PRN Reason: Hypoglycemia Sodium Chloride () 1,000 mls @ 100 mls/hr IV .Q10H [facility] Stop: 04/06/19 17:28 Last Admin: 04/06/19 09:31 Dose: 100 mls/hr Documented by: Sodium Chloride () 250 mls @ 15 mls/hr IV .[id number] PRN PRN Reason: Saline Flush Insulin Human Lispro (Humalog Kwikpen (Bkc)) 0 unit SC Q6 [facility]; Protocol Last Admin: 04/06/19 06:13 Dose: Not Given Documented by: Loratadine (Claritin) 10 mg PO DAILY [facility] Last Admin: 04/06/19 09:39 Dose: 10 mg Documented by: Mirtazapine (Remeron) 15 mg PO QHS [facility] Last Admin: 04/05/19 23:10 Dose: 15 mg Documented by: Montelukast Sodium (Singulair) 10 mg PO DAILY [facility] Last Admin: 04/06/19 09:38 Dose: 10 mg Documented by: Nicotine (Nicoderm Cq (Pbkc)) 21 mg TRANSDERM. DAILY [facility] Last Admin: 04/06/19 09:32 Dose: 21 mg Documented by: Nutritional Formula (Lactose Free) (Glucerna Shake) 120 ml PO 4X/DAY [facility] Last Admin: 04/06/19 09:36 Dose: 120 ml Documented by: Ondansetron HCl (Zofran) 4 mg IV Q8H PRN PRN PRN Reason: Nausea Pantoprazole Sodium (Protonix) 40 mg PO DAILY [facility] Last Admin: 04/06/19 09:38 Dose: 40 mg Documented by: Perphenazine (Perphenazine) 2 mg PO DAILY [facility] Last Admin: 04/06/19 09:37 Dose: 2 mg Documented by: Perphenazine (Perphenazine) 8 mg PO QHS [facility] Last Admin: 04/05/19 23:11 Dose: 8 mg Documented by: Sodium Chloride () 10 - 40 ml IV UD PRN PRN Reason: SALINE FLUSH Discharge Diet: Low fat/ Low Cholesterol, 1800 Calorie Control Diet, Carb Control Diet Discharge Activity: Return to Normal Activity Call your doctor if you observe: Shortness of breath, Dizziness, Fainting spells, Chest pain Home Medications: Medications to take at Discharge Benztropine [Cogentin] 2 mg PO BID PRN 04/27/16 Escitalopram Oxalate [Lexapro] 20 mg PO DAILY 04/27/16 Perphenazine 8 mg PO QHS 04/27/16 Albuterol IH (ProAir) [Proair Hfa] 2 puff INHALATION PRN PRN 10/07/16 Aspirin [Aspirin, Baby] 81 mg PO DAILY@0800 04/17/18 Loratadine 10 mg PO DAILY 04/17/18 Montelukast [Singulair] 10 mg PO DAILY 04/17/18 Perphenazine 2 mg PO DAILY 04/17/18 metFORMIN HCl [Glucophage] 500 mg PO BIDCM #60 tablet 04/18/18 Acetaminophen [Tylenol] 500 mg PO DAILY PRN PRN 04/05/19 Atorvastatin Calcium [Lipitor] 40 mg PO QHS 04/05/19 Mirtazapine 15 mg PO QHS 04/05/19 Omeprazole 40 mg PO DAILY 04/05/19 Other Amb Orders: Cardiac Holter Monitor, Set-Up [[facility]] Location: None Selected Primary Care Physician: Dirk Baez MD [Primary Care Provider] - Please follow up with your Primary Care Physician in: 1 Week Disposition: Home Minutes spent on discharge:: 35 Patient Condition:: Stable Medical Necessity - Tobacco Use Smoking Status: Current every day smoker Tobacco Use: Cigarettes Meaningful Use Info Meaningful Use Diagnoses (Choose all that apply): None applicable <Karan Resendiz - Last Filed: 04/06/19 13:01> Discharge Date and Diagnosis - Secondary Discharge Diagnosis Chronic Problems (Last Reviewed 04/06/19 @ 05:50 by Reymundo Wynn MD) Diabetes mellitus type 2 in obese (Chronic) Depression (Chronic) Hyperlipidemia (Chronic) Schizophrenia (Chronic) Tobacco dependence (Chronic) Morbid obesity (Chronic) GERD (gastroesophageal reflux disease) (Chronic) Hospital Course and Treatment Summary of Care Provided: This patient was seen in conjunction with QUINN Rodriguez . I have independently interviewed and examined the patient and reviewed pertinent historical, laboratory, and other data. Please refer to QUINN Rodriguez note for details of this patient's presentation, findings, and recommendations. I have reviewed QUINN Rodriguez note and concur with documented findings. In brief, patient is a 53-year-old lady with past medical history significant diabetes mellitus type 2 dyslipidemia and tobacco dependence who presented with atypical chest pain syncopal episode.. She had apparently undergone a nuclear stress test in January 2019 which was negative for stress-induced ischemia. Was placed on a monitored bed no pathological arrhythmias were found. Chest pain did resolve. She was discharged home with a 48-hour Holter monitor to be read by cardiology Hospital course as documented above by Georgina Sosa NP?C. - Physical Exam Vitals/I&O's: Vital Signs Temp Pulse Resp BP Pulse Ox 97.9 F 90 16 115/69 93 04/06/19 08:04 04/06/19 11:08 04/06/19 08:04 04/06/19 08:04 04/06/19 08:04 Oxygen Delivery Method Room Air Weight: 97.1 kg Body Mass Index (BMI) 41.8 Finger Stick Blood Glucose 120 Intake and Output for Last 24 Hours 04/04/19 04/05/19 04/06/19 23:59 23:59 23:59 Intake Total 619.17 / 619.17 1573.33 / 1573.33 Balance 619.17 / 619.17 1573.33 / 1573.33 Laboratory Results 04/05/19 18:14: POC Glucose 120 H 04/05/19 18:35: WBC 11.9 H, RBC 4.44, Hgb 14.2, Hct 43.1, MCV 97.1, MCH 32.0, MCHC 32.9, RDW Std Deviation 45.5 H, RDW Coeff of Taryn 13.0, Plt Count 321, MPV 9.5, Immature Gran % (Auto) 0.400, Neut % (Auto) 51.6, Lymph % (Auto) 37.1, Thomas % (Auto) 7.0, Eos % (Auto) 3.1, Baso % (Auto) 0.8, Absolute Neuts (auto) 6.1, Absolute Lymphs (auto) 4.41, Nucleated RBC % 0, Differential Comment SCANNED 04/05/19 18:35: PT 12.8, INR 1.0, D-Dimer Quant (PE/DVT) 0.42 04/05/19 18:35: Sodium 140, Potassium 3.7, Chloride 106, Carbon Dioxide 33.0 H, Anion Gap 1 L, BUN 9, Creatinine 0.72, Estim Creat Clear Calc 64.91, Est GFR (MDRD) Af Amer 109, Est GFR (MDRD) Non-Af 90, BUN/Creatinine Ratio 12.5, Glucose 106, Calcium 9.1, Troponin I < 0.015 04/05/19 22:04: Troponin I < 0.015 04/05/19 23:14: POC Glucose 110 04/06/19 00:32: Troponin I < 0.015 04/06/19 06:12: POC Glucose 110 04/06/19 06:30: Triglycerides 330 H, Cholesterol 172, LDL Cholesterol 76, VLDL Cholesterol 66 H, HDL Cholesterol 30 L 04/06/19 11:45: POC Glucose 152 H Code Visit OBSV E&M: [id number] Observation care discharge
[2019-04-06] MEDS: Insulin Lispro 100 UNIT/ML INSULN.PEN SC (11:55)
[2019-04-06 12:05] LABS: Bedside Glucose 152 mg/dL (70-110)
--- NOTE | 2019-04-06 12:20 | PHA.DC.MR ---
Pharmacy Service has performed discharge medication reconciliation for this patient. Home Medications Benztropine [Cogentin] 2 mg PO BID PRN 04/27/16 Escitalopram Oxalate [Lexapro] 20 mg PO DAILY 04/27/16 Perphenazine 8 mg PO QHS 04/27/16 Albuterol IH (ProAir) [Proair Hfa] 2 puff INHALATION PRN PRN 10/07/16 Aspirin [Aspirin, Baby] 81 mg PO DAILY@0800 04/17/18 Loratadine 10 mg PO DAILY 04/17/18 Montelukast [Singulair] 10 mg PO DAILY 04/17/18 Perphenazine 2 mg PO DAILY 04/17/18 metFORMIN HCl [Glucophage] 500 mg PO BIDCM #60 tablet 04/18/18 Acetaminophen [Tylenol] 500 mg PO DAILY PRN PRN 04/05/19 Atorvastatin Calcium [Lipitor] 40 mg PO QHS 04/05/19 Mirtazapine 15 mg PO QHS 04/05/19 Omeprazole 40 mg PO DAILY 04/05/19 The patient's discharge medication list was reviewed for discrepancies and discrepancies were resolved.
== END 2019-04-06 11:44 | disposition home or self-care (01) ==
LOC: ED 20:17 → PCU 21:14
PROVIDERS: Admitting Provider Hospitalist; Emergency Provider Emergency Medicine; Family Provider Family Medicine; PCP Family Medicine; Visit Provider Internal Medicine
DX: R07.89 Other chest pain (principal); R55 Syncope and collapse; K21.9 Gastro-esophageal reflux disease without esophagitis; E11.9 Type 2 diabetes mellitus without complications; F20.9 Schizophrenia, unspecified; F17.210 Nicotine dependence, cigarettes, uncomplicated; E78.5 Hyperlipidemia, unspecified; E66.01 Morbid (severe) obesity due to excess calories; J44.9 Chronic obstructive pulmonary disease, unspecified; Z79.899 Other long term (current) drug therapy; Z79.82 Long term (current) use of aspirin; Z79.84 Long term (current) use of oral hypoglycemic drugs; Z68.41 Body mass index [BMI] 40.0-44.9, adult; Z71.3 Dietary counseling and surveillance; R00.0 Tachycardia, unspecified
CPT/HCPCS: 36415; 71045; 80048; 80061; 82962; 84484; 85025; 85379; 85610; 93005; 93225; 93226; 93306; 96360; 96361; 97802; 99218; 99285; 99406; J7030; A4216; G0378

== ENCOUNTER → 2019-04-06 12:40 | Outpatient (CLI) | payer MEDICARE, SELFPAY ==
[2019-04-05 21:37] VITALS: BMI 41.8
== END ==
PROVIDERS: Family Provider Family Medicine; PCP Family Medicine; Referring Provider Nurse Practitioner Family; Visit Provider Nurse Practitioner Family
DX: R00.0 Tachycardia, unspecified (principal)
CPT/HCPCS: 93225; 93226

== ENCOUNTER 2019-06-11 13:04 | Emergency (ER) | payer MEDICARE, SELFPAY ==
[2019-06-11 13:05] VITALS: BP 123/92; PULSE 106; RESP 18; TEMP 36.5; O2SAT 95; BMI 39.5
--- NOTE | 2019-06-11 13:08 | EKG12_ITS ---
Test Reason : DYSRHYTHMIA Blood Pressure : / mmHG Vent. Rate : 105 BPM Atrial Rate : 105 BPM P-R Int : 162 ms QRS Dur : 096 ms QT Int : 358 ms P-R-T Axes : 081 070 076 degrees QTc Int : 473 ms Sinus tachycardia Otherwise normal ECG Confirmed by NIURKA CAVAZOS, AMARA ([id number]), desk editor CESAR CASTRO ([id number]) on 06/13/2019 9:41:55 AM Referred By: DALI Confirmed By:AMARA BAH MD
--- NOTE | 2019-06-11 13:41 | RAD_ITS ---
STUDY: X-RAY CHEST REASON FOR EXAM: Female, 53 years old. SOB, WHEEZING; -- COPD, ASTHMA TECHNIQUE: AP COMPARISON: 04/05/2019 FINDINGS: The lungs are clear and expanded. There is no demonstrated pleural abnormality. Normal size heart. Normal mediastinum and jorge. Normal visualized pulmonary arteries. There is atherosclerotic calcification of the aortic arch with tortuosity. No acute bony process. Surgical clips in the right upper abdomen noted. RAD/Chest 1 View (Portable) IMPRESSION: Stable, nonacute portable x-ray examination of the chest. Electronically Signed: Pascual Neumann MD ([place]) at 15:28 EST , Service support ,
--- NOTE | 2019-06-11 14:54 | ED.DCSUM_ITS ---
History of Present Illness Narrative: 53-year-old female presents with concern for back pain. States is been present for the past 3 to 4 days. States it is aching in nature. Bilateral lower lumbar radiating to her buttocks. Typical of her previous back pain. Patient does go to pain management in [place] where she received steroid injections. Denies any fever, chills, saddle anesthesia, loss of bladder or bowel function, IV drug abuse. Patient also states that she has had wheezing which was noticed by triage who ordered a chest x-ray. States this is been present for about a week. She is a current smoker. Nonproductive cough. Denies chest pain or dyspnea on exertion. <Michelet Schaffer - Last Filed: 06/11/19 15:47> <Milton Subramanian - Last Filed: 06/12/19 00:23> Chief Complaint: Shortness of Breath Past Medical History Prior records reviewed: Yes Past Medical History: - - COPD, schizophrenia, hypertension, diabetes Surgical History: cholecystectomy, hysterectomy Smoking Status: Current every day smoker - Family History Maternal Family History: Reports: Diabetes Paternal Family History: Reports: COPD <Michelet Schaffer - Last Filed: 06/11/19 15:47> <Milton Subramanian - Last Filed: 06/12/19 00:23> - Allergies and Home Meds Allergies/Adverse Reactions: Allergies simvastatin Adverse Reaction (Mild, Verified 06/11/19 13:05) Other MUSCLES IN LEGS HURTS meloxicam Adverse Reaction (Verified 06/11/19 13:05) Chest tightness morphine Adverse Reaction (Verified 06/11/19 13:05) Other trazodone Adverse Reaction (Verified 06/11/19 13:05) Vomiting Primary Care Physician: Dirk Baez MD [Primary Care Provider] - Review of Systems General: Denies: Chills, Fever, Sweats Eyes: Denies: Visual changes - bilaterally, Diplopia ENT: Denies: Rhinorrhea, Sore throat Cardiovascular: Denies: Chest pain, Palpitations Respiratory: Reports: Cough. Denies: Dyspnea, Dyspnea on exertion Gastrointestinal: Denies: Abdominal pain, Nausea, Vomiting, Diarrhea, Melena, Hematochezia Genitourinary: Denies: Dysuria, Hematuria, Frequency Musculoskeletal: Reports: Back pain. Denies: Extremity Pain Skin: Denies: Rash, Wounds Neurological: Denies: Headache, Weakness, Numbness <Michelet Schaffer - Last Filed: 06/11/19 15:47> Physical Exam Vital Signs/Narrative: Vital Signs Temp Pulse Resp BP Pulse Ox 06/11/19 13:05 97.7 F L 106 H 18 123/92 H 95 Inital Vital Signs reviewed: Yes General: Well nourished, Well developed, No Acute Distress Head: Normocephalic, Atraumatic Eyes: Perrl, EOMI ENT: Moist mucous membranes, No rhinorrhea Neck: Supple, Nontender Cardiovascular: Regular rate, Regular rhythm, No murmurs Respiratory: No distress, CTA bilaterally, Chest nontender, - - Scant bilateral expiratory wheezing. Abdomen: Soft, Nontender, Nondistended, Normal bowel sounds Back: Normal Inspection, - - Pain to palpation in the bilateral paraspinal lumbar musculature. Extremities: Nontender, No edema Skin: Normal color, No rash Neurological: Alert, Oriented x3, Cranial nerves II-XII grossly intact, Normal Strength, Normal Sensation Psychological: Normal affect, Normal Mood <Michelet Schaffer - Last Filed: 06/11/19 15:47> Diagnostic/Tx/Re-eval Chest X-Ray - ED: 1 View, No Acute Disease Impressions Chest X-Ray 06/11/19 13:41 IMPRESSION: Stable, nonacute portable x-ray examination of the chest. Electronically Signed: Pascual Neumann MD ([place]) at 15:28 EST , Service support , 06/11/19 13:41 Chest 1 View (Portable) [RAD] Stat Laboratory Results 06/11/19 15:00 Urine Color Yellow Urine Clarity Sl. Cloudy Urine pH 6.5 Ur Specific [place] 1.010 Urine Protein Negative Urine Glucose (UA) Normal Urine Ketones Negative Urine Occult Blood Negative Urine Nitrite Negative Urine Bilirubin Negative Urine Urobilinogen Normal Ur Leukocyte Esterase Negative Urine RBC 0 SEEN Urine WBC 0 SEEN Ur Squamous Epith Cells 0-5 SEEN Urine Bacteria 0 SEEN Urine Mucus 0 SEEN - Rhythm Strip Rhythm Strip: Sinus Tach Rate: 105 - EKG Initial EKG Interpretation: Sinus Tachycardia - Is tachycardia at 105 bpm. MT interval 162 ms. QTC of [address] changes. - Medical Decision Making Appears well and nontoxic. EKG done in triage which was negative for acute ischemia. Patient given prednisone as well as breathing treatment. Chest x-ray shows no acute pneumonia. Patient was given Toradol as well as Flexeril for her back pain. Will be given Flexeril for home as well as prednisone for her COPD exacerbation. No evidence of hypoxia in the emergency department. Patient will follow-up with her primary care provider within the next 2 days. Asked to return for new or worsening symptoms. Patient was agreeable and discharged home in stable condition. <Michelet Schaffer - Last Filed: 06/11/19 15:47> - Medical Decision Making Patient presents for low back pain. She also has a history of COPD and was found to be wheezing. She complains of ongoing wheezing. No sputum or fevers. No chest pain. Afebrile and vital signs unremarkable. Lungs clear on my evaluation after treatment. Skin appears unremarkable. Neurovascularly intact. X-rays were unremarkable. The patient also had a chest x-ray and EKG. She was treated with prednisone for COPD. Patient will be discharged to follow-up as an outpatient. Return for any new or worsening issues. <Milton Subramanian - Last Filed: 06/12/19 00:23> ED Disposition <Michelet Schaffer - Last Filed: 06/11/19 15:47> <Milton Subramanian - Last Filed: 06/12/19 00:23> - Plan for ED Patient: Disposition: Home or Assisted Living Diagnosis: Back pain, COPD (chronic obstructive pulmonary disease) Instructions: Relieving Back Pain, Copd Flare Prescriptions: Prednisone [Deltasone] 40 mg PO DAILY #10 tab Prescription Printed cycloBENZAPRine HCl [Flexeril] 5 mg PO TID PRN #12 tab PRN Reason: Muscle Spasm Prescription Printed Referrals: Dirk Baez MD [Primary Care Provider] -
[2019-06-11 14:57] VITALS: PULSE 103; RESP 22
[2019-06-11] MEDS: Ipratropium/Albuterol Sulfate 3 ML AMPUL.NEB INHALATION (14:57)
[2019-06-11] MEDS: Ketorolac 15 MG/ML Vial IM (14:58)
[2019-06-11] MEDS: cycloBENZAPRine HCl 10 MG Tablet PO (14:58)
[2019-06-11 15:04] LABS: Bacteria 0 SEEN /hpf (None Seen); Mucous, Urine 0 SEEN /hpf (<or=2+); Red Blood Cells-Urine 0 SEEN /hpf (0-5); White Blood Cells 0 SEEN /hpf (0-5)
[2019-06-11 15:05] LABS: Color, Urine Yellow (Yellow); Glucose, Dipstick Normal (Normal); Ketone-Dipstick Negative (Negative); Leukocyte Esterase-Dipstick Negative /ul (Negative); Nitrite-Dipstick Negative (Negative); Occult Blood-Urine Negative /ul (Negative); Protein-Dipstick Negative (Negative); Urine Bilirubin Dipstick Negative (Negative); Urine Clarity Sl. Cloudy (Clear); Urine Urobilinogen Normal (Normal); Urine pH 6.5 (5.0 - 8.0)
[2019-06-11 15:10] LABS: Squamous Epithelial Cells - UA 0-5 SEEN /hpf (5-10)
[2019-06-11 15:16] VITALS: BP 123/92; PULSE 106; RESP 18; TEMP 36.5; O2SAT 95; O2SAT 97
[2019-06-11] MEDS: predniSONE 20 MG Tablet 60 MG PO (15:58)
[2019-06-11 16:01] VITALS: RESP 18
== END 2019-06-11 16:03 | disposition home or self-care (01) ==
PROVIDERS: Emergency Provider Emergency Medicine; Family Provider Family Medicine; PCP Family Medicine
DX: M54.5 Low back pain (principal); J44.9 Chronic obstructive pulmonary disease, unspecified; E11.9 Type 2 diabetes mellitus without complications; F20.9 Schizophrenia, unspecified; I10 Essential (primary) hypertension; Z79.82 Long term (current) use of aspirin; Z79.84 Long term (current) use of oral hypoglycemic drugs; Z79.899 Other long term (current) drug therapy; F17.200 Nicotine dependence, unspecified, uncomplicated
CPT/HCPCS: 71045; 81001; 93005; 94640; 94760; 96372; 99283

== ENCOUNTER 2019-07-03 19:07 | Emergency (ER) | payer MEDICARE, SELFPAY ==
[2019-07-03] VITALS (8 sets, daily range): BP systolic 92–127; BP diastolic 42–85; PULSE 96–117; RESP 14–30; TEMP 35.7–36.6; O2SAT 86–99; BMI 41.0
--- NOTE | 2019-07-03 20:02 | EKG12_ITS ---
Test Reason : SOB Blood Pressure : / mmHG Vent. Rate : 102 BPM Atrial Rate : 102 BPM P-R Int : 154 ms QRS Dur : 094 ms QT Int : 360 ms P-R-T Axes : 080 069 080 degrees QTc Int : 469 ms Sinus tachycardia Otherwise normal ECG Confirmed by MOSES CAVAZOS, ALEKSANDRA ([id number]), department editor FRAN NELSON ([id number]) on 07/05/2019 9:57:35 AM Referred By: BB Confirmed By:ALEKSANDRA LOPES MD
--- NOTE | 2019-07-03 20:03 | ED.VIS.GEN ---
History of Present Illness Chief Complaint: Shortness of Breath Informant: Patient, Family Onset: Days Context: Gradual Onset Current Severity: Mild Maximum Severity: Moderate Narrative: Patient presents with a 3-day history of worsening shortness of breath, cough, dizziness. She has recently been treated twice in the last month for COPD exacerbations. She is been on steroids twice and antibiotics once. She reports having chills and sweats. She is coughing up white to green-colored sputum. - Past Medical History (1) Depression Status: Chronic (2) Diabetes mellitus type 2 in obese Status: Chronic (3) GERD (gastroesophageal reflux disease) Status: Chronic (4) Hyperlipidemia Status: Chronic (5) Schizophrenia Status: Chronic (6) Acute exacerbation of COPD with asthma Status: Inactive Past Medical History - Allergies and Home Meds Allergies/Adverse Reactions: Allergies simvastatin Adverse Reaction (Mild, Verified 06/11/19 13:05) Other MUSCLES IN LEGS HURTS meloxicam Adverse Reaction (Verified 06/11/19 13:05) Chest tightness morphine Adverse Reaction (Verified 06/11/19 13:05) Other trazodone Adverse Reaction (Verified 06/11/19 13:05) Vomiting Primary Care Physician: Dirk Baez MD [Primary Care Provider] - 1 Week Prior records reviewed: Yes Surgical History: cholecystectomy, hysterectomy Lives: Spouse/ Significant Other Smoking Status: Current every day smoker - Family History Maternal Family History: Reports: Diabetes Paternal Family History: Reports: COPD Review of Systems General: Reports: Chills, Sweats Eyes: Denies: Visual changes - bilaterally ENT: Denies: Bilateral ear pain Cardiovascular: Reports: Chest pain Respiratory: Reports: Dyspnea, Cough, Sputum Gastrointestinal: Denies: Nausea, Vomiting Genitourinary: Denies: Dysuria Musculoskeletal: Denies: Extremity Pain Skin: Denies: Rash Neurological: Reports: Headache Psych: Denies: Depression Hematologic: Denies: Easy bruising Allergy: Denies: Uticaria Physical Exam Vital Signs/Narrative: Vital Signs Temp Pulse Resp BP Pulse Ox 07/03/19 19:45 113 H 21 H 07/03/19 19:09 96.3 F L 117 H 30 H 127/85 H 96 07/03/19 19:08 96.3 F L 117 H 30 H 127/85 H 96 Inital Vital Signs reviewed: Yes General: Well nourished, Well developed Head: Normocephalic ENT: Moist mucous membranes Neck: Supple Cardiovascular: Regular rate, Regular rhythm Respiratory: Decreased Air Movement Abdomen: Soft, Nontender Extremities: Nontender Skin: Normal color Neurological: Alert, Oriented x3 Psychological: Normal affect Diagnostic/Tx/Re-eval Impressions Chest X-Ray 07/03/19 20:40 IMPRESSION: No acute thoracic pathology. Electronically Signed: Aureliano Raines, at 21:26 EST Tel , Service support , 07/03/19 20:40 Chest PA and Lateral [RAD] Stat Laboratory Results 07/03/19 07/03/19 20:10 20:10 WBC 13.3 H RBC 4.35 Hgb 13.9 Hct 41.3 MCV 94.9 MCH 32.0 MCHC 33.7 RDW Std Deviation 45.5 H RDW Coeff of Taryn 12.9 Plt Count 276 MPV 9.4 Immature Gran % (Auto) 0.300 Neut % (Auto) 44.9 L Lymph % (Auto) 44.6 H [place] % (Auto) 7.2 Eos % (Auto) 2.4 Baso % (Auto) 0.6 Absolute Neuts (auto) 6.0 Absolute Lymphs (auto) 5.94 H Nucleated RBC % 0 Differential Comment SEE COMMENT Diff Path Review May foll Platelet Estimate ADEQUATE RBC Morphology N CHROM Anisocytosis 1+ Macrocytosis RARE Sodium 140 Potassium 3.7 Chloride 105 Carbon Dioxide 31.0 Anion Gap 4 L BUN 10 Creatinine 0.70 Estim Creat Clear Calc 66.76 Est GFR (MDRD) Af Amer 111 Est GFR (MDRD) Non-Af 92 BUN/Creatinine Ratio 14.2 Glucose 137 H Calcium 8.9 Troponin I < 0.015 - EKG Initial EKG Interpretation: Sinus Rhythm - Sinus at 102 with no acute ischemia. - Medical Decision Making Patient does have some wheezing noted on exam. She is given cycle of aerosol treatments. Chest x-ray reveals no acute infiltrate. On repeat evaluation patient states she does feel improved. She been placed on 2 L nasal cannula nursing staff, however I take her off of this she is maintaining her sats in the mid 90s. She does not want to be admitted to the hospital. She was recently on azithromycin. She will be treated with a prednisone taper as well as a course of doxycycline, first dose given here. Patient was given return instructions. ED Disposition - Plan for ED Patient: Disposition: Home or Assisted Living Diagnosis: COPD (chronic obstructive pulmonary disease) Instructions: Copd Flare Prescriptions: Doxycycline 100 mg PO BID #20 cap Prescription Printed Prednisone 10 mg PO UD #33 tab Prescription Printed Referrals: Dirk Baez MD [Primary Care Provider] - 1 Week
[2019-07-03] MEDS: Ipratropium/Albuterol Sulfate 3 ML AMPUL.NEB INHALATION (20:09)
[2019-07-03] MEDS: Albuterol 2.5 MG/3 ML VIAL.NEB. INHALATION ×2 (20:09)
[2019-07-03] MEDS: 0.9% Normal Saline 1,000 ML 15 ML IV (20:17)
[2019-07-03 20:20] LABS: Absolute Lymphocyte Count 5.94 X10^3/uL (0.83-4.51); Basophil# 0.08 X10^3/uL; Basophil% 0.6 % (0-1); Eosinophil# 0.32 X10^3/uL; Eosinophils% 2.4 % (0-5); Hematocrit 41.3 % (37-47); Hemoglobin 13.9 g/dL (12.0-15.0); Lymphocyte # 5.94 X10^3/ul (4.0); Lymphocyte % 44.6 % (19-41); Mean Corp Hgb Conc 33.7 g/dL (32-36); Mean Corpuscular Volume 94.9 fL (81-99); Mean Platelet Vol. 9.4 fl (6.2-12.0); Monocyte# 0.96 X10^3/uL; Monocyte% 7.2 % (0-10); NRBC Flagged by Analyzer 0 % (0-5); Neutrophil # 5.99 X10^3/uL (2.7-7.7); Neutrophil % 44.9 % (47-70); POSITIVE DIFFERENTIAL YES; Platelet Count 276 K/mm3 (150-450); RBC Distribution Width CV 12.9 % (11.6-14.6); RBC Distribution Width SD 45.5 fl (35.1-43.9); Red Blood Count 4.35 M/mm3 (4.2-5.4); White Blood Count 13.3 K/mm3 (4.4-11.0)
--- NOTE | 2019-07-03 20:40 | RAD_ITS ---
STUDY: X-RAY CHEST REASON FOR EXAM: Female, 53 years old. Cough TECHNIQUE: PA and lateral views of the chest COMPARISON: X-Ray Chest June 11, 2019 FINDINGS: The lungs are clear. There are no pleural effusions. There is no pneumothorax. The heart is normal in size. The visualized osseous structures are within normal limits. RAD/Chest PA and Lateral IMPRESSION: No acute thoracic pathology. Electronically Signed: Aureliano Raines, at 21:26 EST Tel , Service support ,
[2019-07-03 20:44] LABS: Differential Indicated SCAN CRITERIA MET
[2019-07-03 20:46] LABS: Anion Gap 4 (5-15); BUN 10 mg/dL (7-18); BUN/Creat Ratio 14.2 RATIO (10-20); Calcium,Total 8.9 mg/dL (8.5-10.1); Chloride 105 mmol/L (98-107); EST Glomerular Filtration Rate 92 mL/min (>60); Est Glom Filt Rate - Afr Amer 111 mL/min (>60); Estimated Creatinine Clearance 66.76 ml/min; Glucose 137 mg/dL (74-106); Potassium 3.7 mmol/L (3.5-5.1); Sodium Level 140 mmol/L (136-145)
[2019-07-03 21:04] LABS: Platelet Estimate ADEQUATE (ADEQ)
[2019-07-03 21:05] LABS: Anisocytosis 1+; Macrocytosis RARE; Red Cell Morphology N CHROM NORMAL (NORM C&C)
[2019-07-03] MEDS: predniSONE 20 MG Tablet 40 MG PO (23:09)
[2019-07-03] MEDS: Doxycycline 100 MG CAPSULE PO (23:09)
[2019-07-04 12:21] LABS: Pathologist Review Reviewed
== END 2019-07-03 23:11 | disposition home or self-care (01) ==
PROVIDERS: Emergency Provider Emergency Medicine; PCP Family Medicine
DX: J44.9 Chronic obstructive pulmonary disease, unspecified (principal); F32.9 Major depressive disorder, single episode, unspecified; E66.9 Obesity, unspecified; E11.9 Type 2 diabetes mellitus without complications; K21.9 Gastro-esophageal reflux disease without esophagitis; E78.5 Hyperlipidemia, unspecified; F20.9 Schizophrenia, unspecified; F17.200 Nicotine dependence, unspecified, uncomplicated; Z79.84 Long term (current) use of oral hypoglycemic drugs; Z79.51 Long term (current) use of inhaled steroids; Z79.82 Long term (current) use of aspirin; Z79.899 Other long term (current) drug therapy
CPT/HCPCS: 71046; 80048; 84484; 85025; 93005; 94640; 99251; 99285; J7030; A4216; G0463

== ENCOUNTER 2020-05-05 10:25 | Emergency (ER) | payer MEDICARE, SELFPAY ==
[2019-07-03 19:09] VITALS: BMI 41.0
[2020-05-05] VITALS (7 sets, daily range): BP systolic 105–140; BP diastolic 60–76; PULSE 86–100; RESP 14–20; TEMP 36.8; O2SAT 91–97; BMI 41.7
--- NOTE | 2020-05-05 10:39 | EKG12_ITS ---
Test Reason : CP Blood Pressure : / mmHG Vent. Rate : 099 BPM Atrial Rate : 099 BPM P-R Int : 154 ms QRS Dur : 098 ms QT Int : 360 ms P-R-T Axes : 076 074 075 degrees QTc Int : 462 ms Normal sinus rhythm Normal ECG Confirmed by NIURKA CAVAZOS, AMARA ([id number]), scientific publications editor FRAN NELSON ([id number]) on 05/08/2020 10:33:51 AM Referred By: DALI/SOCORRO Confirmed By:AMARA BAH MD
--- NOTE | 2020-05-05 10:39 | RAD_ITS ---
STUDY: X-RAY CHEST REASON FOR EXAM: Female, 54 years old. chest pain started 1.5hrs ago states in the left chest radiates to left arm. TECHNIQUE: Single AP portable view of the chest. COMPARISON: 07/03/2019 FINDINGS: The lungs are clear and expanded. There is no demonstrated pleural abnormality. Normal size heart. Normal mediastinum and jorge. Normal visualized pulmonary arteries. Normal visualized aortic arch and descending thoracic aorta. Normal visualized thoracic spine. Normal visualized ribs, clavicles, and shoulders. There is no demonstrated abnormality of the visualized soft tissue structures of the upper abdomen. RAD/Chest 1 View (Portable) IMPRESSION: Normal x-ray examination of the chest. Electronically Signed: Pato Wyman DO at 10:58 EST Tel , Service support ,
--- NOTE | 2020-05-05 10:40 | ED.DCSUM_ITS ---
History of Present Illness Chief Complaint: Chest Pain Informant: Patient Onset: Hours Timing: Intermittent Current Severity: Moderate Maximum Severity: Moderate Narrative: Patient presents with waxing and waning left chest tightness and pain. She states it does radiate to the left upper arm. She will intermittently get short of breath with this. She does have a history of COPD and reports chronic cough, but not largely changed from baseline. No fevers or chills. She denies personal history of cardiac disease but does report strong family history. - Past Medical History (1) Depression Status: Chronic (2) Diabetes mellitus type 2 in obese Status: Chronic (3) GERD (gastroesophageal reflux disease) Status: Chronic (4) Hyperlipidemia Status: Chronic (5) Schizophrenia Status: Chronic Past Medical History - Allergies and Home Meds Allergies/Adverse Reactions: Allergies simvastatin Adverse Reaction (Mild, Verified 05/05/20 10:35) Other MUSCLES IN LEGS HURTS meloxicam Adverse Reaction (Verified 05/05/20 10:35) Chest tightness morphine Adverse Reaction (Verified 05/05/20 10:35) Other trazodone Adverse Reaction (Verified 05/05/20 10:35) Vomiting Primary Care Physician: Dirk Baez MD [Primary Care Provider] - Prior records reviewed: Yes Surgical History: cholecystectomy, hysterectomy Smoking Status: Current every day smoker - Family History Maternal Family History: Reports: Diabetes Paternal Family History: Reports: COPD Review of Systems General: Denies: Chills, Fever Eyes: Denies: Visual changes - bilaterally ENT: Denies: Bilateral ear pain Cardiovascular: Reports: Chest pain Respiratory: Reports: Dyspnea, Cough Gastrointestinal: Denies: Abdominal pain, Nausea, Vomiting, Diarrhea Genitourinary: Denies: Dysuria Musculoskeletal: Denies: Swelling, Extremity Pain Neurological: Denies: Headache Hematologic: Denies: Easy bruising, Easy bleeding Allergy: Denies: Uticaria Physical Exam Vital Signs/Narrative: Vital Signs Temp Pulse Resp BP Pulse Ox 05/05/20 10:29 98.2 F 100 15 140/66 H 95 Inital Vital Signs reviewed: Yes General: Well nourished, Well developed Head: Normocephalic ENT: Moist mucous membranes Neck: Supple Cardiovascular: Regular rate, Regular rhythm Respiratory: No distress, CTA bilaterally, Chest tenderness - Mild left upper chest tenderness. No crepitus. Abdomen: Soft, Nontender Extremities: Nontender, No edema Skin: Normal color, No rash Neurological: Alert, Oriented x3 Psychological: Normal affect Diagnostic/Tx/Re-eval Impressions Chest X-Ray 05/05/20 10:39 IMPRESSION: Normal x-ray examination of the chest. Electronically Signed: Pato Wyman DO at 10:58 EST Tel , Service support , 05/05/20 10:39 Chest 1 View (Portable) [RAD] Stat Laboratory Results 05/05/20 05/05/20 05/05/20 10:35 10:35 10:35 WBC 11.0 RBC 4.49 Hgb 11.7 L Hct 39.8 MCV 88.6 MCH 26.1 L MCHC 29.4 L RDW Std Deviation 52.6 H RDW Coeff of Taryn 16.3 H Plt Count 449 MPV 9.2 Immature Gran % (Auto) 0.500 Neut % (Auto) 57.7 Lymph % (Auto) 30.0 [place] % (Auto) 7.8 Eos % (Auto) 2.9 Baso % (Auto) 1.1 H Absolute Neuts (auto) 6.3 Absolute Lymphs (auto) 3.29 Nucleated RBC % 0 D-Dimer Quant (PE/DVT) 0.44 Sodium 140 Potassium 4.0 Chloride 105 Carbon Dioxide 31.0 Anion Gap 4 L BUN 5 L Creatinine 0.67 Estim Creat Clear Calc 72.43 Est GFR (MDRD) Af Amer 117 Est GFR (MDRD) Non-Af 97 BUN/Creatinine Ratio 7.4 L Glucose 134 H Calcium 8.7 Troponin I < 0.015 - EKG Initial EKG Interpretation: Sinus Rhythm - Sinus at 99 with no acute ischemia. Follow-up EKG Interpretation: Sinus Rhythm - Sinus at 85 with no acute ischemia. - Medical Decision Making Patient was given 3 additional baby aspirin as she had already taken 1 at home this morning. She was given a DuoNeb treatment. On repeat evaluation she reports her chest pain is significantly improved and her breathing is also improved. Patient does have significant risk factors for cardiac disease. Her story is concerning. I paged the hospitalist for admission, but nurse came back to me stating that the patient was now having second thoughts about staying in the hospital. She is concerned about hardy Covid in the hospital. I went back to bedside and discussed this with her at length. She is very adamant that she will not be admitted. She did agree to stay for 3-hour repeat troponin and EKG. These are both unremarkable. At this time patient be discharged home with the understanding that she is welcome to return at any time. ED Disposition - Plan for ED Patient: Disposition: Home or Assisted Living Diagnosis: Chest pain Instructions: ED Chest Pain Atypical Unkn Cause Referrals: Dirk Baez MD [Primary Care Provider] -
[2020-05-05 10:48] LABS: Absolute Lymphocyte Count 3.29 X10^3/uL (0.83-4.51); Absolute Neutrophil Count 6.3 X10^3/uL (2.0-7.7); Basophil# 0.12 X10^3/uL; Basophil% 1.1 % (0-1); Eosinophil# 0.32 X10^3/uL; Eosinophils% 2.9 % (0-5); Hematocrit 39.8 % (37-47); Hemoglobin 11.7 g/dL (12.0-15.0); Lymphocyte # 3.29 X10^3/ul (4.0); Mean Corp Hgb Conc 29.4 g/dL (32-36); Mean Corpuscular Hgb 26.1 pg (27.0-32.0); Mean Corpuscular Volume 88.6 fL (81-99); Mean Platelet Vol. 9.2 fl (6.2-12.0); Monocyte# 0.85 X10^3/uL; Monocyte% 7.8 % (0-10); NRBC Flagged by Analyzer 0 % (0-5); Neutrophil # 6.32 X10^3/uL (2.7-7.7); Neutrophil % 57.7 % (47-70); Platelet Count 449 K/mm3 (150-450); RBC Distribution Width CV 16.3 % (11.6-14.6); RBC Distribution Width SD 52.6 fl (35.1-43.9); Red Blood Count 4.49 M/mm3 (4.2-5.4)
[2020-05-05] MEDS: Ipratropium/Albuterol Sulfate 3 ML AMPUL.NEB INHALATION (10:53)
[2020-05-05 11:01] LABS: Anion Gap 4 (5-15); BUN 5 mg/dL (7-18); BUN/Creat Ratio 7.4 RATIO (10-20); Calcium,Total 8.7 mg/dL (8.5-10.1); Chloride 105 mmol/L (98-107); Creatinine, Serum 0.67 mg/dL (0.55-1.02); EST Glomerular Filtration Rate 97 mL/min (>60); Est Glom Filt Rate - Afr Amer 117 mL/min (>60); Estimated Creatinine Clearance 72.43 ml/min; Glucose 134 mg/dL (74-106); Sodium Level 140 mmol/L (136-145)
[2020-05-05 11:07] LABS: D-Dimer Quantitative (DVT/PE) 0.44 FEU/ug/m (0.27-0.49)
[2020-05-05] MEDS: Aspirin 81 MG TAB.CHEW 243 MG PO (11:29)
--- NOTE | 2020-05-05 13:30 | EKG12_ITS ---
Test Reason : REPEAT Blood Pressure : / mmHG Vent. Rate : 085 BPM Atrial Rate : 085 BPM P-R Int : 156 ms QRS Dur : 094 ms QT Int : 386 ms P-R-T Axes : 070 069 072 degrees QTc Int : 459 ms Normal sinus rhythm Normal ECG Confirmed by NIURKA CAVAZOS, AMARA ([id number]), editor index FRAN NELSON ([id number]) on 05/08/2020 10:33:38 AM Referred By: SOCORRO Confirmed By:AMARA BAH MD
== END 2020-05-05 14:28 | disposition home or self-care (01) ==
PROVIDERS: Emergency Provider Emergency Medicine; PCP Family Medicine
DX: R07.9 Chest pain, unspecified (principal); F17.200 Nicotine dependence, unspecified, uncomplicated; E11.9 Type 2 diabetes mellitus without complications; E66.9 Obesity, unspecified; J44.9 Chronic obstructive pulmonary disease, unspecified; K21.9 Gastro-esophageal reflux disease without esophagitis; Z79.84 Long term (current) use of oral hypoglycemic drugs
CPT/HCPCS: 71045; 80048; 84484; 85025; 85379; 93005; 94640; 99285; A4216